=== PATIENT | male | born 1955 | race Caucasian/White ===

== ENCOUNTER 2019-08-06 09:46 | Inpatient (IN) | payer MEDICAID, SELFPAY ==
[2019-08-06 09:47] VITALS: BP 156/95; PULSE 102; RESP 25; TEMP 36.6; O2SAT 95; BMI 30.9
--- NOTE | 2019-08-06 09:58 | ECG_ITS ---
APPROVED REPORT Exam: Resting ECG HR:104 bpm ECG Measurements Heart Rate 104 AXES IA 188 P 52 QRSd 76 QRS 47 QT 318 T 76 QTc 418 <Conclusion> Sinus tachycardia Otherwise normal ECG Electronically signed by : Tereso Duarte, 08/08/2019 17:32:09
--- NOTE | 2019-08-06 10:08 | CT_ITS ---
PROCEDURE: CT ANGIO CHEST CLINCIAL INDICATION: SOA Shortness of air, left-sided chest pain COMPARISON: No exams were available for comparison TECHNIQUE: IV Contrast: 70ML OPTIRAY 350 Axial images obtained with sagittal and coronal reformats. All CT scans at the facility use one or more dose reduction, viz: automated exposure control, ma/kV adjustment per patient size (including targeted exams where dose is matched to indication, i.e. head), or iterative reconstruction technique. FINDINGS: HEART AND MEDIASTINAL STRUCTURES: No mediastinal or hilar mass evident. No evidence of aortic aneurysm or dissection. No evidence pulmonary embolus. There is diffuse coronary artery calcification LUNGS AND PLEURAL SPACES: Unremarkable. BONY STRUCTURES: Degenerative changes are present in the thoracic spine. UPPER ABDOMEN: There is diffuse fatty liver infiltration. There is thickening the lateral wall of the greater curvature of the stomach and there is thickening anterior pararenal fascia on left with some haziness of the pancreatic tail. These suspicious for acute pancreatitis. Recommend dedicated abdomen CT for evaluation. There is dense calcification involving the medial aspect of the left hepatic lobe ADDITIONAL FINDINGS: No other significant abnormalities. IMPRESSION: 1. No acute finding of the chest. No evidence of pulmonary embolus aortic aneurysm or dissection.. 2. Suspect acute pancreatitis of the tail the pancreas. Suggest dedicated CT abdomen for further evaluation. 3. Fatty liver Dictated by: Andrew Newman MD 08/06/2019 11:21 Electronically signed by Andrew Newman MD in [place] 08/06/2019 11:21
[2019-08-06 10:10] LABS: Basophils # 0.1 K/mm3 (0-0.2); Basophils % 0.9 % (0.1-2.0); Eosinophils # 0.1 K/mm3 (0.0-0.4); Eosinophils % 0.5 % (0.1-12.0); Hematocrit 49.9 % (42.0-52.0); Hemoglobin 16.6 g/dL (14.1-18.0); Lymphocytes # 0.6 K/mm3 (0.7-4.5); Lymphocytes % 4.6 % (10-50); Mean Corpuscular HGB Conc 33.3 g/dL (31.8-35.4); Mean Corpuscular Hemoglobin 33.8 pg (27.0-31.2); Mean Corpuscular Volume 101.5 fl (80-94); Mean Platelet Volume 9.1 fl (7.4-10.4); Monocytes # 0.6 K/mm3 (0.1-1.0); Monocytes % 4.7 % (1.7-9.3); Neutrophils # 11.9 K/mm3 (1.8-7.8); Neutrophils % 89.3 % (37.0-80.0); Platelet Count 249 K/mm3 (142-424); Red Blood Count 4.91 M/mm3 (4.60-6.20); Red Cell Distribution Width 13.6 % (11.5-17.5); White Blood Count 13.3 K/mm3 (4.8-10.8)
[2019-08-06 10:13] LABS: MANUAL DIFFERENTIAL MANUAL DIFFERENTIAL (MANUAL DIFF)
--- NOTE | 2019-08-06 10:15 | HMH.EDGENADL ---
ED Disposition Clinical Impression: Acute pancreatitis, Intractable abdominal pain, Sepsis Disposition: Admitted as Observation Condition on Discharge: Good - Critical Care Critical Care Time: Yes (When patient first came in he was little diaphoretic and pulse was elevated) Attestation: On 08/06/19, the high probability of a clinically significant, sudden or life threatening deterioration of the following system(s) required my full and direct attention, intervention and personal management. The time I documented below is in addition to time spent performing reported procedures but includes the following listed in this critical care notation. Total Critical Care Time: 10 Vital system(s) involved:: Circulatory Failure, Shock (Septic) My critical care processes included: Assessment & monitoring of V/S, Initial and Re-exams, Data Review/Interpretation, Coordinating Care, Medication Orders and management, Documentation Medical Decision Making - Medical Records Medical records reviewed: Yes: I reviewed the patient's medical records. - Faisal Inquiry Pt receiving controlled substance: No Vital Signs: 08/06/19 09:47 08/06/19 10:47 Temperature 97.8 F Temperature Source Oral Pulse Rate [Right] 102 H 92 H Respiratory Rate 25 H 20 Blood Pressure [Right Arm] 156/95 H 148/81 H Blood Pressure Mean [Right Arm] 115 103 Blood Pressure Source [Right Arm] Automatic Cuff Blood Pressure Position [Right Arm] Supine 02 Sat by Pulse Oximetry 95 95 - Lab Data Lab results reviewed: Yes: I reviewed the patient's lab results. Lab Results 08/06/19 09:53: WBC 13.3 H, RBC 4.91, Hgb 16.6, Hct 49.9, MCV 101.5 H, MCH 33.8 H, MCHC 33.3, RDW 13.6, Plt Count 249, MPV 9.1, Neut % (Auto) 89.3 H, Lymph % (Auto) 4.6 L, Benson % (Auto) 4.7, Eos % (Auto) 0.5, Baso % (Auto) 0.9, Neut # (Auto) 11.9 H, Lymph # (Auto) 0.6 L, Benson # (Auto) 0.6, Eos # (Auto) 0.1, Baso # (Auto) 0.1, Total Counted 100, Neutrophils % (Manual) 83 H, Lymphocytes % (Manual) 9 L, Monocytes % (Manual) 8, Platelet Estimate Normal, Anisocytosis 1+, Macrocytosis 1+ 08/06/19 09:53: Sodium 134 L, Potassium 4.7, Chloride 95 L, Carbon Dioxide 23, Anion Gap 20.7 H, BUN 20, Creatinine 1.40 H, Estimated Creat Clear 82, Estimated GFR 51 L, Est GFR ( Amer) 62, Glucose 344 H, Calcium 10.7 H, Total Bilirubin 1.3, AST 53, ALT 96 H, Alkaline Phosphatase 68, Troponin I < 0.01, Total Protein 8.6 H, Albumin 5.1 H, Globulin 3.5 H, Albumin/Globulin Ratio 1.5 08/06/19 09:53: Troponin I Cancelled, Amylase 332 H* 08/06/19 09:53: ESR 3 08/06/19 09:53: C-Reactive Protein 63.7 H 08/06/19 09:53: Lipase 3777 H 08/06/19 10:21: Specimen Source L brachial, O2 % Room air, ABG pH 7.34 L, ABG pCO2 42.6, ABG pO2 59.6 L, ABG HCO3 22.4, ABG Total CO2 23.7, ABG O2 Saturation 90, ABG Base Excess -3.4 L 08/06/19 10:22: Lactate 2.4 H 08/06/19 10:22: Influenza Type A Ag Negative, Influenza Type B Ag Negative 08/06/19 10:22: Group A Strep Rapid Negative 08/06/19 11:55: Urine Color Yellow, Urine Appearance Clear, Urine pH 5.5, Ur Specific [place] 1.010, Urine Protein Negative, Urine Glucose (UA) 3+, Urine Ketones Negative, Urine Blood Trace-i, Urine Nitrate Negative, Urine Bilirubin Negative, Urine Urobilinogen 0.2, Ur Leukocyte Esterase Negative, Urine RBC 3-5, Urine WBC 5-10, Ur Squamous Epith Cells Occasional, Ur Transition Epith Cell Occ, Urine Bacteria Trace Result diagrams: 08/06/19 09:53 08/06/19 09:53 Orders (Tests/Meds): ED MEDICATIONS Generic Name Dose Route Start Last Admin Trade Name Freq PRN Reason Stop Dose Admin Piperacillin Sod/Tazobactam 50 mls @ 100 mls/hr 08/06/19 13:00 08/06/19 12:30 Sod 3.375 gm/ Sodium Chloride IV 08/20/19 12:59 100 mls/hr Q6H RICKY Administration Protocol Discontinued Medications Generic Name Dose Route Start Last Admin Trade Name Freq PRN Reason Stop Dose Admin Ioversol 75 ml 08/06/19 10:55 08/06/19 10:55 Rad-Optiray 350 100ml Vial IV 08/06/19 10:56 7
[2019-08-06 10:19] LABS: Chloride 95 mmol/L (98-107); Potassium 4.7 mmoL/L (3.5-5.1); Sodium 134 mmol/L (136-145)
[2019-08-06 10:21] LABS: Anisocytosis 1+; Lymphocytes % 9 % (10-50); Macrocytosis 1+; Monocytes % 8 % (2-9); Neutrophils % 83 % (42-76); Platelet Estimate Normal; Total Cells Counted 100
[2019-08-06 10:22] LABS: Alanine Aminotransferase 96 U/L (12-78); Albumin Level 5.1 g/dl (3.5-5.0); Albumin/Globulin Ratio 1.5 (1.1-1.8); Alkaline Phosphatase 68 U/L (38-126); Anion Gap 20.7 mEq/L (5-15); Aspartate Amino Transferase 53 U/L (17-59); Bilirubin,Total 1.3 mg/dl (0.2-1.3); Blood Urea Nitrogen 20 mg/dl (9-20); Calcium 10.7 mg/dl (8.4-10.2); Carbon Dioxide 23 mmol/L (22.0-30.0); Creatinine Clearance Estimated 82 mL/min (50-200); Estimated Glomerular Filt Rate 51 ml/min (>60); GFR (African American) 62 ML/MIN (>60); Globulin 3.5 g/dL (1.3-3.2); Glucose 344 mg/dl (74-100); Total Protein,Serum 8.6 g/dl (6.3-8.2)
[2019-08-06 10:35] LABS: Troponin I < 0.01 ng/ml (0.00-0.034)
[2019-08-06 10:38] LABS: C-Reactive Protein 63.7 mg/L (0-4)
[2019-08-06 10:39] LABS: Strep Scrn Group A (Rapid) Negative (Negative)
[2019-08-06 10:42] LABS: Lactic Acid 2.4 mmol/L (0.7-2.1)
[2019-08-06 10:47] VITALS: BP 148/81; PULSE 92; RESP 20; O2SAT 95
[2019-08-06 10:48] LABS: Erythrocyte Sedimentation Rate 3 mm/hr (0-20)
[2019-08-06 10:55] LABS: ABG Base Excess -3.4 mmol/L (-2.4-2.3); ABG HCO3 22.4 mmhg (22.0-26.0); ABG Oxygen Saturation 90 % (90-100); ABG PCO2 42.6 mmhg (35.0-45.0); ABG PH 7.34 mmol/L (7.35-7.45); ABG PO2 59.6 mmhg (80-100); ABG TCO2 23.7 mmhg (23-27)
[2019-08-06 10:56] LABS: Oxygen ROOM AIR %; Source L BRACHIAL
--- NOTE | 2019-08-06 11:19 | PC.NURSE ---
NOTIFIED THAT PT MEETS CRITERIA FOR SEVERE SEPSIS
--- NOTE | 2019-08-06 11:55 | CT_ITS ---
PROCEDURE: CT ABDOMEN PELVIS WO CON CLINICAL INDICATION: Possible pancreatitis Left-sided abdominal pain, evaluate for pancreatitis COMPARISON: No exams were available for comparison TECHNIQUE: Axial images obtained with sagittal and coronal reformats. All CT scans at the facility use one or more dose reduction, viz: automated exposure control, ma/kV adjustment per patient size (including targeted exams where dose is matched to indication, i.e. head), or iterative reconstruction technique. FINDINGS: LOWER THORAX: No acute finding ABDOMEN & PELVIS: There is diffuse fatty liver with mild hepatomegaly.. A rounded coarse area of calcification is present involving the left lateral aspect of the left hepatic lobe at 2.5 cm There is thickening of the lateral wall of the greater curvature of the stomach as well as the anterior pararenal fascia extending from the diaphragmatic region. There is increased density lacked at the tail the pancreas with stranding of the peripancreatic fat consistent with pancreatitis. The spleen, adrenal glands, and kidneys have an unremarkable appearance. Contrast is present within the renal collecting system from recent chest CT. No obvious pancreatic abscess or pancreatic gas. No localized peripancreatic fluid collections are evident. There are some low level areas of increased density in the gallbladder and could be due to cholelithiasis or sludge. There is a mild amount of retained colonic feces. No intestinal obstruction or free air. Urinary bladder is distended with contrast. No acute bony findings. IMPRESSION: 1. The findings are compatible with acute pancreatitis of the tail the pancreas with inflammatory changes of the greater curvature of the stomach and thickening of the anterior pararenal fascia. No pancreatic abscess or localized fluid collections. 2. Fatty liver with hepatomegaly Dictated by: Andrew Newman MD 08/06/2019 13:32 Electronically signed by Andrew Newman MD in [place] 08/06/2019 13:32
[2019-08-06 12:01] LABS: Appearance,Urine CLEAR (Clear); Bilirubin,Urine Negative (Negative); Blood, Urine TRACE-I (Negative); Color,Urine YELLOW (Yellow); Glucose,Urine (UA) 3+ (Negative); Ketones,Urine Negative (Negative); Leukocyte Esterase,Urine Negative (Negative); Microscopic, Urine URINE MICROSCOPIC (MICROSCOPIC); Nitrate,Urine Negative (Negative); PH,Urine 5.5 (5.0-8.5); Protein,Urine Negative (Negative); Urobilinogen,Urine 0.2 EU/dl (0.2)
[2019-08-06 12:08] LABS: Amylase 332 U/L (30-110)
[2019-08-06 12:08] LABS: Bacteria,Urine Trace /lpf; Squamous Epithelial Cell,Urine Occasional #/hpf (0-5); Transitional Epi Cells,Urine OCC #/lpf (0-3)
[2019-08-06 12:16] LABS: Lipase 3777 U/L (23-300)
[2019-08-06 14:23] LABS: Reflex Lactic Add Lactic Reflex
[2019-08-06 14:52] LABS: Lactic Acid Follow Up (RFLX 1) 2.4 mmol/L (0.7-2.1)
--- NOTE | 2019-08-06 14:59 | P.CONPHA_ITS ---
[facility] Pharmacy VTE Monitoring - Patient Demographics Admission date: 08/06/19 Report Date: 08/06/19 Time: 14:59 Allergies/Adverse Reactions: Patient Allergies No Known Allergies Allergy (Verified 08/06/19 09:58) Height: 1.85 m Weight: 106.594 kg Patient Problems: Current Active Problems Acute pancreatitis (Acute) Intractable abdominal pain (Acute) Sepsis (Acute) - VTE Risk Labs: VTE Related Lab Results Hgb 16.6 g/dL (14.1-18.0) 08/06/19 09:53 Hct 49.9 % (42.0-52.0) 08/06/19 09:53 Plt Count 249 K/mm3 (142-424) 08/06/19 09:53 BUN 20 mg/dl (9-20) 08/06/19 09:53 Creatinine 1.40 mg/dl (0.66-1.25) H 08/06/19 09:53 Estimated Creat Clear 82 mL/min (50-200) 08/06/19 09:53 - Prophylaxis VTE Prophylaxis Ordered?: Yes Types of VTE Prophylaxis: TEDS Knee High Location of Applied Device: Bilateral Lower Extremeties - VTE Diagnosis Confirmed Treatment or plan recommended: Continue Current Treatment
[2019-08-06 15:05] VITALS: BP 150/80; PULSE 87; RESP 20; TEMP 36.8; O2SAT 98
[2019-08-06 15:51] VITALS: BP 120/80; PULSE 102; RESP 18; TEMP 37; O2SAT 94
--- NOTE | 2019-08-06 16:20 | HMH.HP ---
*Admission Date: 08/06/19 *Chief complaint: Left abdominal and chest pain *History of present illness: 64-year-old white male, with a history of diabetes, hypertension and hyperlipidemia who presented to the emergency department with a 2-day history of increasing left lower chest pain along with left upper abdominal pain. He reports some bloating sensations, and a gnawing/intractable pain that has worsened over the past 24 hours. In the emergency department work-up revealed clears chest CT scan, and abdominal CT that revealed evidence of inflammation of the tail of the pancreas without mass. Amylase and lipase were elevated, signs/symptoms of sepsis were noted and patient was admitted to hospital for IV fluids, pain control and antibiotics. Of note patient denies alcohol intake. Denies changes in stools, sonia colored stools, green stools or bloody stools. Patient reports that his physician that he sees for his diabetes recently started new medication and he thinks his new medications were diclofenac and Jardiance-patient notes that his A1c was 12% at his visit at his last appointment. Patient feels much better after pain medicine administered in the ER. [facility] History I have reviewed the patient's past medical history: Yes Medical History: Reports:: Diabetes Mellitus Type 2, Hyperlipidemia, Hypertension *Have you ever received a pneumonia vaccine?: No *Have you received a flu vaccine this season?: Yes - *Social History Educational Level: Attended Grade School Alcohol Intake: never *Occupational Status:: unemployed Household Members: family *Travel in the last 8 weeks: None Family Hx:: No significant family history Review of Systems - Review of Systems Review of systems:: pertinent systems reviewed and negative unless documented below Meds Home Medications Medication Instructions Recorded Confirmed Type Aspirin [Aspirin 81mg EC Tab] 81 mg PO DAILY 08/06/19 08/06/19 History Diclofenac Sodium [Diclofenac 75mg 75 mg PO BID 08/06/19 08/06/19 History Tab] Empagliflozin [Jardiance] 25 mg PO DAILY 08/06/19 08/06/19 History Ezetimibe 10 mg PO DAILY 08/06/19 08/06/19 History Fenofibrate 160 mg PO DAILY 08/06/19 08/06/19 History Levothyroxine Sodium [Synthroid 75 mcg PO DAILY 08/06/19 08/06/19 History 75mcg (0.075mg) tablet] Lisinopril/Hydrochlorothiazide 1 tab PO DAILY 08/06/19 08/06/19 History [Lisinopril-Hctz 20-25 mg Tab*] Metformin HCl 500 mg PO BID 08/06/19 08/06/19 History glipiZIDE [Glucotrol 5mg tablet] 5 mg PO BID 08/06/19 08/06/19 History Allergies Allergy/AdvReac Type Severity Reaction Status Date / Time No Known Allergies Allergy Verified 08/06/19 09:58 Exam Vital signs and Labs for Last 24 Hours: Temp Pulse Resp BP Pulse Ox 98.6 F 102 H 18 120/80 94 L 08/06/19 15:51 08/06/19 15:51 08/06/19 15:51 08/06/19 15:51 08/06/19 15:51 Laboratory Results - last 24 hr 08/06/19 09:53: WBC 13.3 H, RBC 4.91, Hgb 16.6, Hct 49.9, MCV 101.5 H, MCH 33.8 H, MCHC 33.3, RDW 13.6, Plt Count 249, MPV 9.1, Neut % (Auto) 89.3 H, Lymph % (Auto) 4.6 L, Levy % (Auto) 4.7, Eos % (Auto) 0.5, Baso % (Auto) 0.9, Neut # (Auto) 11.9 H, Lymph # (Auto) 0.6 L, Levy # (Auto) 0.6, Eos # (Auto) 0.1, Baso # (Auto) 0.1, Total Counted 100, Neutrophils % (Manual) 83 H, Lymphocytes % (Manual) 9 L, Monocytes % (Manual) 8, Platelet Estimate Normal, Anisocytosis 1+, Macrocytosis 1+ 08/06/19 09:53: Sodium 134 L, Potassium 4.7, Chloride 95 L, Carbon Dioxide 23, Anion Gap 20.7 H, BUN 20, Creatinine 1.40 H, Estimated Creat Clear 82, Estimated GFR 51 L, Est GFR ( Amer) 62, Glucose 344 H, Calcium 10.7 H, Total Bilirubin 1.3, AST 53, ALT 96 H, Alkaline Phosphatase 68, Troponin I < 0.01, Total Protein 8.6 H, Albumin 5.1 H, Globulin 3.5 H, Albumin/Globulin Ratio 1.5 08/06/19 09:53: Troponin I Cancelled, Amylase 332 H* 08/06/19 09:53: ESR 3 08/06/19 09:53: C-Reactive Protein 63.7 H 08/06/19 09:53: Lipase 3777 H 08/06/19 10:21: Spec
[2019-08-06 16:38] LABS: POC Glucose,Bedside 307 (70-110)
[2019-08-06 16:42] LABS: Reflex Lactic (2 hrs) Add Lactic Reflex
[2019-08-06 17:41] LABS: Lactic Acid Follow up (RFLX 2) 2.3 mmol/L (0.7-2.1)
[2019-08-06 20:00] VITALS: BP 132/73; PULSE 117; RESP 18; TEMP 36.8; O2SAT 97
[2019-08-06 20:43] LABS: POC Glucose,Bedside 259 (70-110)
--- NOTE | 2019-08-07 02:49 | PC.NURSE ---
A&O X4. PT RESTED INTERMITTENTLY T/O SHIFT. HE C/O PAIN OF THE LEFT ABDOMEN REGION T/O SHIFT, REQUESTING PAIN MEDS. ADMINISTERED DILAUDID X2 PER JUN THUS FAR. UPON REASSESSMENT BOTH TIMES PT NOTED RESTING WITH EYES CLOSED WITH NO FURTHER COMPLAINTS. PT DOES STATE TO THIS RN THAT WHEN MEDIATION IS GIVEN TO HIM ON AN EMPTY STOMACH HE GETS VERY NAUSEOUS. ADMINISTERED ZOFRAN PER JUN X1 THUS FAR. PT TOLERATED WELL WITH NO EMESIS POST DEPARTMENT OF [employer] OFFICER. PT DID VOMIT X1 THUS FAR THIS SHIFT. THICK GREEN EMESIS NOTED. PT REFUSED A BATH WHEN THIS RN ASKED AFTER VOMITING. PT REMAINS ON NPO WITH ICE CHIPS ONLY. TOLERATES ICE CHIPS WELL. USE OF URINAL T/O SHIFT. URINE NOTED WITH STRONG FOUL ODOR, CLEAR, STRAW COLOR. VSS. TEDS BLE. REMAINS SAFE. CALL LIGHT WITHIN REACH. WILL CONTINUE TO MONITOR.
[2019-08-07 04:00] VITALS: BP 122/76; PULSE 112; RESP 20; TEMP 36.8; O2SAT 90
[2019-08-07 05:50] VITALS: BMI 31.6
[2019-08-07 06:31] LABS: POC Glucose,Bedside 346 (70-110)
[2019-08-07 07:22] LABS: Chloride 99 mmol/L (98-107); Potassium 5.1 mmoL/L (3.5-5.1); Sodium 138 mmol/L (136-145)
[2019-08-07 07:25] LABS: Alanine Aminotransferase 57 U/L (12-78); Albumin Level 4.1 g/dl (3.5-5.0); Albumin/Globulin Ratio 1.5 (1.1-1.8); Alkaline Phosphatase 48 U/L (38-126); Anion Gap 23.1 mEq/L (5-15); Aspartate Amino Transferase 42 U/L (17-59); Bilirubin,Total 1.4 mg/dl (0.2-1.3); Blood Urea Nitrogen 27 mg/dl (9-20); Carbon Dioxide 21 mmol/L (22.0-30.0); Creatinine Clearance Estimated 65 mL/min (50-200); Estimated Glomerular Filt Rate 38 ml/min (>60); GFR (African American) 46 ML/MIN (>60); Globulin 2.7 g/dL (1.3-3.2); Glucose 296 mg/dl (74-100); Total Protein,Serum 6.8 g/dl (6.3-8.2)
[2019-08-07 07:27] LABS: Basophils # 0.2 K/mm3 (0-0.2); Basophils % 0.9 % (0.1-2.0); Eosinophils % 0.1 % (0.1-12.0); Hemoglobin 16.1 g/dL (14.1-18.0); Lymphocytes # 0.4 K/mm3 (0.7-4.5); Lymphocytes % 2.2 % (10-50); Mean Corpuscular HGB Conc 31.6 g/dL (31.8-35.4); Mean Corpuscular Hemoglobin 33.8 pg (27.0-31.2); Mean Platelet Volume 8.9 fl (7.4-10.4); Monocytes # 0.8 K/mm3 (0.1-1.0); Monocytes % 4.4 % (1.7-9.3); Neutrophils # 16.8 K/mm3 (1.8-7.8); Neutrophils % 92.4 % (37.0-80.0); Platelet Count 221 K/mm3 (142-424); Red Blood Count 4.77 M/mm3 (4.60-6.20); Red Cell Distribution Width 14.1 % (11.5-17.5); White Blood Count 18.2 K/mm3 (4.8-10.8)
[2019-08-07 07:28] LABS: MANUAL DIFFERENTIAL MANUAL DIFFERENTIAL (MANUAL DIFF)
[2019-08-07 07:33] LABS: Amylase 1428 U/L (30-110)
[2019-08-07 07:40] VITALS: BP 139/77; PULSE 106; RESP 17; TEMP 36.4; O2SAT 94
[2019-08-07 07:41] LABS: Anisocytosis 2+; Lymphocytes % 5 % (10-50); Macrocytosis 2+; Monocytes % 9 % (2-9); Neutrophils % 86 % (42-76); Platelet Estimate Normal; Total Cells Counted 100
[2019-08-07 08:00] VITALS: O2SAT 94
[2019-08-07 08:20] LABS: Lipase 11819 U/L (23-300)
--- NOTE | 2019-08-07 08:52 | HMH.ACPN2 ---
Internal Medicine - PN: Subj *Date: 08/07/19 *Time: 08:52 Interval history: Overall patient feels weird which she attributes to not eating today. His abdominal pain is about the same. He has been able to make urine and have 1 bowel movement. Denies vomiting. Exam Vital signs and Labs for Last 24 Hours: Temp Pulse Resp BP Pulse Ox 97.6 F 106 H 17 139/77 94 L 08/07/19 07:40 08/07/19 07:40 08/07/19 07:40 08/07/19 07:40 08/07/19 07:40 Laboratory Results - last 24 hr 08/06/19 09:53: WBC 13.3 H, RBC 4.91, Hgb 16.6, Hct 49.9, MCV 101.5 H, MCH 33.8 H, MCHC 33.3, RDW 13.6, Plt Count 249, MPV 9.1, Neut % (Auto) 89.3 H, Lymph % (Auto) 4.6 L, [place] % (Auto) 4.7, Eos % (Auto) 0.5, Baso % (Auto) 0.9, Neut # (Auto) 11.9 H, Lymph # (Auto) 0.6 L, [place] # (Auto) 0.6, Eos # (Auto) 0.1, Baso # (Auto) 0.1, Total Counted 100, Neutrophils % (Manual) 83 H, Lymphocytes % (Manual) 9 L, Monocytes % (Manual) 8, Platelet Estimate Normal, Anisocytosis 1+, Macrocytosis 1+ 08/06/19 09:53: Sodium 134 L, Potassium 4.7, Chloride 95 L, Carbon Dioxide 23, Anion Gap 20.7 H, BUN 20, Creatinine 1.40 H, Estimated Creat Clear 82, Estimated GFR 51 L, Est GFR ( Amer) 62, Glucose 344 H, Calcium 10.7 H, Total Bilirubin 1.3, AST 53, ALT 96 H, Alkaline Phosphatase 68, Troponin I < 0.01, Total Protein 8.6 H, Albumin 5.1 H, Globulin 3.5 H, Albumin/Globulin Ratio 1.5 08/06/19 09:53: Troponin I Cancelled, Amylase 332 H* 08/06/19 09:53: ESR 3 08/06/19 09:53: C-Reactive Protein 63.7 H 08/06/19 09:53: Lipase 3777 H 08/06/19 10:21: Specimen Source L brachial, O2 % Room air, ABG pH 7.34 L, ABG pCO2 42.6, ABG pO2 59.6 L, ABG HCO3 22.4, ABG Total CO2 23.7, ABG O2 Saturation 90, ABG Base Excess -3.4 L 08/06/19 10:22: Lactate 2.4 H 08/06/19 10:22: Influenza Type A Ag Negative, Influenza Type B Ag Negative 08/06/19 10:22: Group A Strep Rapid Negative 08/06/19 11:55: Urine Color Yellow, Urine Appearance Clear, Urine pH 5.5, Ur Specific [place] 1.010, Urine Protein Negative, Urine Glucose (UA) 3+, Urine Ketones Negative, Urine Blood Trace-i, Urine Nitrate Negative, Urine Bilirubin Negative, Urine Urobilinogen 0.2, Ur Leukocyte Esterase Negative, Urine RBC 3-5, Urine WBC 5-10, Ur Squamous Epith Cells Occasional, Ur Transition Epith Cell Occ, Urine Bacteria Trace 08/06/19 14:35: Lactate 2.4 H 08/06/19 16:21: POC Glucose 307 H* 08/06/19 17:17: Lactate 2.3 H 08/06/19 20:32: POC Glucose 259 H 08/07/19 06:00: POC Glucose 346 H* 08/07/19 06:16: Amylase 1428 H* 08/07/19 06:16: WBC 18.2 H D, RBC 4.77, Hgb 16.1, Hct 51.0, MCV 107.0 H, MCH 33.8 H, MCHC 31.6 L, RDW 14.1, Plt Count 221, MPV 8.9, Neut % (Auto) 92.4 H, Lymph % (Auto) 2.2 L, [place] % (Auto) 4.4, Eos % (Auto) 0.1, Baso % (Auto) 0.9, Neut # (Auto) 16.8 H, Lymph # (Auto) 0.4 L, Harper # (Auto) 0.8, Eos # (Auto) 0.0, Baso # (Auto) 0.2, Total Counted 100, Neutrophils % (Manual) 86 H, Lymphocytes % (Manual) 5 L, Monocytes % (Manual) 9, Platelet Estimate Normal, Anisocytosis 2+, Macrocytosis 2+ 08/07/19 06:16: Sodium 138, Potassium 5.1, Chloride 99, Carbon Dioxide 21 L, Anion Gap 23.1 H, BUN 27 H D, Creatinine 1.80 H D, Estimated Creat Clear 65, Estimated GFR 38 L, Est GFR ( Amer) 46 L D, Glucose 296 H, Calcium 9.0 D, Total Bilirubin 1.4 H, AST 42, ALT 57 D, Alkaline Phosphatase 48, Total Protein 6.8, Albumin 4.1 D, Globulin 2.7, Albumin/Globulin Ratio 1.5, Lipase 25322 H I & O for Last 24 hours: Intake & Output 08/04/19 08/05/19 08/06/19 08/07/19 11:59 11:59 11:59 11:59 Intake Total 2824 / 2824 Output Total 1465 / 1465 Balance 1359 / 1359 Weight 235 lb 239 lb 2 oz - *Routine HEENT Exam Head: Present: normocephalic Eye: Present: EOMI, PERRL ENT: Present: mucous membranes moist - *Routine Neck Exam Present: supple. Absent: lymphadenopathy - *Routine Respiratory Exam Present: CTA bilaterally - *Routine Cardiovascular Exam Present: RRR - *Routine Abdominal Exam Present: soft, normoactive bowel sounds, t
[2019-08-07 11:03] LABS: POC Glucose,Bedside 368 (70-110)
--- NOTE | 2019-08-07 11:17 | HMH.PHAINT ---
MED REC-COMPARED MED LIST WITH FILL HX. CORRECTIONS MADE.
--- NOTE | 2019-08-07 12:09 | PC.NURSE ---
Pt did not tolerate a clear diet;He had several episodes of vomiting and reported increased abdominal pain. Pt made NPO (ice chips only) and zofran administered, he refused pain meds;
[2019-08-07 16:00] VITALS: BP 118/88; PULSE 60; RESP 17; TEMP 36.6; O2SAT 94
[2019-08-07 16:23] LABS: POC Glucose,Bedside 311 (70-110)
--- NOTE | 2019-08-07 17:28 | PC.NURSE ---
Pt has rested in bed all shift. Diet was switched to clears for breakfast but patient did not tolerate, he had an episode of vomiting and complained of increased abdominal pain. Diet switched back to npo (ice chips) zofran and morphine administered. Pt reported relief from both but still reported feeling bloated. He has used a urinal at the bedside, urine is dark and foul smelling. Glucose has been elevated in the 300's, 10u and 8u units administered per sliding scale. No other complaints verbalized. Will continue to monitor.
[2019-08-07 20:00] VITALS: BP 142/80; PULSE 131; RESP 20; TEMP 36.6; O2SAT 91
[2019-08-07 21:25] LABS: POC Glucose,Bedside 284 (70-110)
[2019-08-07 22:43] VITALS: PULSE 124
--- NOTE | 2019-08-07 23:54 | PC.NURSE ---
EKG obtained and read per ER MD due to pt remaining tachycardic. See chart. Pt denies any soa or discomfort to chest. EKG on chart. Pt currently resting in bed. No N/V at this time. Pt c/o burning to stomach earlier this evening and was administered medication per jun. Pt stated that his stomach felt as if it was on fire. No additional complaints. He is currently sleeping at this time. Call light within reach. Will continue to monitor.
[2019-08-08 04:00] VITALS: BP 121/71; PULSE 117; RESP 16; TEMP 36.7; O2SAT 90
--- NOTE | 2019-08-08 04:27 | PC.NURSE ---
Spoke with MD during rounding this AM. Give additional 1L bolus of LR then return to 150 ml/hr.no change to D5 NS @ 50 ml/hr.
--- NOTE | 2019-08-08 04:34 | HMH.ACPN2 ---
Internal Medicine - PN: Subj *Date: 08/08/19 *Time: 04:34 Interval history: Patient overnight had ongoing stomach burning, was able to keep liquids down, and has had 700 mL's of urine out so for the shift. He has had increasing tachycardia, EKG at midnight showed sinus tachycardia. Also complains of difficulty breathing. Exam Vital signs and Labs for Last 24 Hours: Temp Pulse Resp BP Pulse Ox 97.9 F 124 H 20 142/80 H 91 L 08/07/19 20:00 08/07/19 22:43 08/07/19 20:00 08/07/19 20:00 08/07/19 20:00 Laboratory Results - last 24 hr 08/07/19 06:00: POC Glucose 346 H* 08/07/19 06:16: Amylase 1428 H* 08/07/19 06:16: WBC 18.2 H D, RBC 4.77, Hgb 16.1, Hct 51.0, MCV 107.0 H, MCH 33.8 H, MCHC 31.6 L, RDW 14.1, Plt Count 221, MPV 8.9, Neut % (Auto) 92.4 H, Lymph % (Auto) 2.2 L, [place] % (Auto) 4.4, Eos % (Auto) 0.1, Baso % (Auto) 0.9, Neut # (Auto) 16.8 H, Lymph # (Auto) 0.4 L, [place] # (Auto) 0.8, Eos # (Auto) 0.0, Baso # (Auto) 0.2, Total Counted 100, Neutrophils % (Manual) 86 H, Lymphocytes % (Manual) 5 L, Monocytes % (Manual) 9, Platelet Estimate Normal, Anisocytosis 2+, Macrocytosis 2+ 08/07/19 06:16: Sodium 138, Potassium 5.1, Chloride 99, Carbon Dioxide 21 L, Anion Gap 23.1 H, BUN 27 H D, Creatinine 1.80 H D, Estimated Creat Clear 65, Estimated GFR 38 L, Est GFR ( Amer) 46 L D, Glucose 296 H, Calcium 9.0 D, Total Bilirubin 1.4 H, AST 42, ALT 57 D, Alkaline Phosphatase 48, Total Protein 6.8, Albumin 4.1 D, Globulin 2.7, Albumin/Globulin Ratio 1.5, Lipase 13801 H 08/07/19 10:56: POC Glucose 368 H* 08/07/19 16:15: POC Glucose 311 H* 08/07/19 20:32: POC Glucose 284 H I & O for Last 24 hours: Intake & Output 08/05/19 08/06/19 08/07/19 08/08/19 11:59 11:59 11:59 11:59 Intake Total 2824 / 2824 5472 / 5472 Output Total 2215 / 2215 1650 / 1650 Balance 609 / 609 3822 / 3822 Weight 235 lb 239 lb 2 oz Narrative: Patient is awake, alert, pleasant. Lungs have good air movement. Heart rate tachycardic but regular. Abdomen is soft but has intense pain in the left upper quadrant into the flank consistent with his diagnosis of pancreatitis, no jaundice, no rashes on the abdomen. No periumbilical or flank bruising. No edema or clubbing. Neurologic exam nonfocal. Assessment and Plan (1) Acute pancreatitis Current visit: Yes Status: Acute Category: Medical Code(s): K85.90 - Acute pancreatitis without necrosis or infection, unspecified (2) Sepsis Current visit: Yes Status: Acute Category: Medical Code(s): A41.9 - Sepsis, unspecified organism (3) Obesity (BMI 30.0-34.9) Current visit: Yes Status: Acute Category: Medical Code(s): E66.9 - Obesity, unspecified (4) Diabetes mellitus type 2, noninsulin dependent Current visit: Yes Status: Acute Category: Medical Code(s): E11.9 - Type 2 diabetes mellitus without complications (5) Hyperlipidemia Current visit: Yes Status: Acute Category: Medical Code(s): E78.5 - Hyperlipidemia, unspecified (6) Hypertension Current visit: Yes Status: Acute Category: Medical Code(s): I10 - Essential (primary) hypertension (7) Acute kidney injury superimposed on chronic kidney disease Current visit: Yes Status: Acute Category: Medical Code(s): N17.9 - Acute kidney failure, unspecified; N18.9 - Chronic kidney disease, unspecified - Assessment and plan all Dx Assessment and Plan for all problems:: Laboratory studies yesterday showed acute kidney injury superimposed on chronic kidney disease. Plan will be to check his labs earlier this morning. We had fluids yesterday to support his sepsis, significant pancreatitis and kidney injury. Obviously this could be the natural sequela of this, check ABG to assess respiratory status/acidosis. Follow liver enzymes and blood counts today as well. Add Pepcid and Protonix for stomach pain.
[2019-08-08 04:53] LABS: ABG Base Excess -6.9 mmol/L (-2.4-2.3); ABG HCO3 18.9 mmhg (22.0-26.0); ABG Oxygen Saturation 92 % (90-100); ABG PCO2 36.5 mmhg (35.0-45.0); ABG PH 7.33 mmol/L (7.35-7.45); ABG PO2 64.7 mmhg (80-100); ABG TCO2 20.1 mmhg (23-27)
[2019-08-08 04:54] LABS: Allen's Test ACCEPTABLE; Oxygen 2L %; Source Right Radial
[2019-08-08 04:59] LABS: Basophils # 0.2 K/mm3 (0-0.2); Basophils % 0.9 % (0.1-2.0); Eosinophils # 0.1 K/mm3 (0.0-0.4); Eosinophils % 0.5 % (0.1-12.0); Hematocrit 45.2 % (42.0-52.0); Hemoglobin 14.5 g/dL (14.1-18.0); Lymphocytes # 0.4 K/mm3 (0.7-4.5); Lymphocytes % 2.6 % (10-50); Mean Corpuscular HGB Conc 32.1 g/dL (31.8-35.4); Mean Corpuscular Hemoglobin 33.4 pg (27.0-31.2); Mean Corpuscular Volume 104.1 fl (80-94); Mean Platelet Volume 9.5 fl (7.4-10.4); Monocytes % 5.8 % (1.7-9.3); Neutrophils % 90.1 % (37.0-80.0); Platelet Count 203 K/mm3 (142-424); Red Blood Count 4.34 M/mm3 (4.60-6.20); Red Cell Distribution Width 14.1 % (11.5-17.5); White Blood Count 16.7 K/mm3 (4.8-10.8)
[2019-08-08 05:00] VITALS: BMI 32.9
[2019-08-08 05:00] LABS: MANUAL DIFFERENTIAL MANUAL DIFFERENTIAL (MANUAL DIFF)
[2019-08-08 05:02] LABS: Alanine Aminotransferase 46 U/L (12-78); Albumin Level 3.3 g/dl (3.5-5.0); Albumin/Globulin Ratio 1.2 (1.1-1.8); Alkaline Phosphatase 49 U/L (38-126); Anion Gap 15.1 mEq/L (5-15); Aspartate Amino Transferase 67 U/L (17-59); Bilirubin,Total 2.2 mg/dl (0.2-1.3); Blood Urea Nitrogen 31 mg/dl (9-20); Carbon Dioxide 22 mmol/L (22.0-30.0); Chloride 102 mmol/L (98-107); Creatinine Clearance Estimated 73 mL/min (50-200); Estimated Glomerular Filt Rate 44 ml/min (>60); GFR (African American) 53 ML/MIN (>60); Globulin 2.8 g/dL (1.3-3.2); Glucose 254 mg/dl (74-100); Potassium 4.1 mmoL/L (3.5-5.1); Sodium 135 mmol/L (136-145); Total Protein,Serum 6.1 g/dl (6.3-8.2)
[2019-08-08 05:18] LABS: Lymphocytes % 4 % (10-50); Macrocytosis 3+; Monocytes % 2 % (2-9); Neutrophils % 77 % (42-76); Platelet Estimate Normal; Total Cells Counted 100
--- NOTE | 2019-08-08 05:19 | PC.NURSE ---
rn notified of weight gain
[2019-08-08 06:16] LABS: POC Glucose,Bedside 239 (70-110)
--- NOTE | 2019-08-08 07:06 | PC.NURSE ---
MD notified of pt VS and complaints this AM. Pt O2 sat in upper 80s. Pt stated, it hurts here when I breathe . Pt pointed to epigastric area. 2L NC applied. MD aware. Labs obtained and reported to . New order: Calcium Gluconate 2 grams IV and currently infusing at this time.
[2019-08-08 08:00] VITALS: BP 130/76; PULSE 113; RESP 18; TEMP 36.6; O2SAT 91
[2019-08-08 11:26] LABS: POC Glucose,Bedside 315 (70-110)
[2019-08-08 16:00] VITALS: BP 142/83; PULSE 92; RESP 20; TEMP 36.3; O2SAT 92
[2019-08-08 16:28] LABS: POC Glucose,Bedside 258 (70-110)
[2019-08-08 17:25] VITALS: O2SAT 88
--- NOTE | 2019-08-08 17:25 | PC.NURSE ---
RA sat 88%
--- NOTE | 2019-08-08 18:17 | PC.NURSE ---
Pt has complained of nausea t/o the shift and reports that his stomach hatch. He states even eating ice makes it burn worse. Zofran administered x2 and dilaudid administered x2 with some relief reported. He remains npo/ice chips only, pt has been educated on adhering to this as he has requested something to drink multiple times t/o the day. Small bm this morning. 1400 mll of urine out thus far. Will continue to monitor.
[2019-08-08 19:41] VITALS: BP 148/84; PULSE 113; RESP 21; TEMP 36.7; O2SAT 93
[2019-08-08 20:48] LABS: POC Glucose,Bedside 273 (70-110)
[2019-08-09] VITALS (7 sets, daily range): BP systolic 118–151; BP diastolic 68–83; PULSE 91–108; RESP 18–24; TEMP 36.6–36.8; O2SAT 90–95; BMI 34.0; BMI 34.2
--- NOTE | 2019-08-09 03:10 | PC.NURSE ---
Pt A&O x3. Has been up to chair x1 this shift. Tolerated fair. He continues to c/o abdominal discomfort and nausea. Describes discomfort as burning and cramping. Medicated per jun. Abdomen tender and distended. BS active. Pt remains on 2L NC. Has c/o soa x1 this shift. Dry cough noted. Pt has been encouraged to use incentive spirometer. HR tachycardic this shift ranging 110s. D5 NS @ 50 and LR infusing 150 ml/hr. Call light within reach. No other concerns at this time. Will continue to monitor.
[2019-08-09 06:13] LABS: Basophils # 0.1 K/mm3 (0-0.2); Basophils % 0.6 % (0.1-2.0); Eosinophils # 0.1 K/mm3 (0.0-0.4); Eosinophils % 0.4 % (0.1-12.0); Hematocrit 40.3 % (42.0-52.0); Hemoglobin 12.8 g/dL (14.1-18.0); Lymphocytes # 0.4 K/mm3 (0.7-4.5); Lymphocytes % 3.5 % (10-50); Mean Corpuscular HGB Conc 31.8 g/dL (31.8-35.4); Mean Corpuscular Hemoglobin 33.2 pg (27.0-31.2); Mean Corpuscular Volume 104.6 fl (80-94); Mean Platelet Volume 9.6 fl (7.4-10.4); Monocytes # 0.8 K/mm3 (0.1-1.0); Monocytes % 7.1 % (1.7-9.3); Neutrophils # 10.4 K/mm3 (1.8-7.8); Neutrophils % 88.3 % (37.0-80.0); Platelet Count 170 K/mm3 (142-424); Red Blood Count 3.85 M/mm3 (4.60-6.20); Red Cell Distribution Width 14.1 % (11.5-17.5); White Blood Count 11.8 K/mm3 (4.8-10.8)
[2019-08-09 06:16] LABS: MANUAL DIFFERENTIAL MANUAL DIFFERENTIAL (MANUAL DIFF)
[2019-08-09 06:19] LABS: Chloride 101 mmol/L (98-107); Potassium 3.9 mmoL/L (3.5-5.1); Sodium 137 mmol/L (136-145)
[2019-08-09 06:22] LABS: Alanine Aminotransferase 34 U/L (12-78); Albumin Level 3.3 g/dl (3.5-5.0); Albumin/Globulin Ratio 1.2 (1.1-1.8); Alkaline Phosphatase 59 U/L (38-126); Anion Gap 16.9 mEq/L (5-15); Aspartate Amino Transferase 51 U/L (17-59); Bilirubin,Total 1.3 mg/dl (0.2-1.3); Blood Urea Nitrogen 29 mg/dl (9-20); Calcium 7.1 mg/dl (8.4-10.2); Carbon Dioxide 23 mmol/L (22.0-30.0); Creatinine Clearance Estimated 97 mL/min (50-200); Estimated Glomerular Filt Rate 56 ml/min (>60); GFR (African American) 68 ML/MIN (>60); Globulin 2.8 g/dL (1.3-3.2); Glucose 161 mg/dl (74-100); Total Protein,Serum 6.1 g/dl (6.3-8.2)
[2019-08-09 06:34] LABS: POC Glucose,Bedside 143 (70-110)
--- NOTE | 2019-08-09 07:28 | US_ITS ---
PROCEDURE: US ABDOMEN COMPLETE CLINICAL INDICATION: pancreatitis COMPARISON: CT ABDOMEN PELVIS WO CON from 08/06/2019 FINDINGS: PANCREAS: The pancreas is not well visualized. LIVER: There is diffuse fatty liver infiltration with diffuse increased echogenicity of the liver with poor through transmission of sound. There is a 2 cm calcific lesion involving the lateral aspect of the left hepatic lobe as seen on the CT scan. RIGHT KIDNEY: Unremarkable. Normal size and echogenicity. No hydronephrosis LEFT KIDNEY: Unremarkable. Normal size and echogenicity. No hydronephrosis GALLBLADDER: No gallstones, gallbladder wall thickening, pericholecystic fluid, or biliary dilatation. The gallbladder is slightly prominent at 11 x 4 cm. AORTA: No evidence of aneurysmal dilatation. SPLEEN: Unremarkable. Normal size and echogenicity ASCITES: None demonstrated. IMPRESSION: Fatty liver with mild prominence of the gallbladder. No gallstones, gallbladder wall thickening or biliary dilatation evident. Dictated by: Andrew Newman MD 08/09/2019 14:36 Electronically signed by Andrew Newman MD in [place] 08/09/2019 14:36
--- NOTE | 2019-08-09 07:29 | XR_ITS ---
PROCEDURE: XR CHEST 2V CLINICAL HISTORY: dyspnea - ongoing pancreatitis The COMPARISON: CT ANGIO CHEST from 08/06/2019 FINDINGS: Mild cardiomegaly without failure. Increased density is developed in the left lower lobe consistent with pneumonia and/or volume loss with effusion. There are minimal atelectatic changes in the right lung base. No acute bony abnormalities. IMPRESSION: Left basilar atelectasis or infiltrate with effusion which has developed since CT scan of 08/06/2019 Dictated by: Andrew Newman MD 08/09/2019 13:39 Electronically signed by Andrew Newman MD in [facility] 08/09/2019 13:39
[2019-08-09 08:20] LABS: Anisocytosis 1+; Eosinophils % 1 % (0-3); Lymphocytes % 4 % (10-50); Macrocytosis 1+; Monocytes % 9 % (2-9); Neutrophils % 86 % (42-76); Total Cells Counted 100
[2019-08-09 08:21] LABS: Platelet Estimate Moderate Decrease
--- NOTE | 2019-08-09 08:29 | HMH.ACPN2 ---
Internal Medicine - PN: Subj *Date: 08/09/19 *Time: 08:29 Interval history: Patient feels somewhat better. Remains very hungry. His pain is better as is dyspnea. Exam Vital signs and Labs for Last 24 Hours: Temp Pulse Resp BP Pulse Ox 98.2 F 108 H 24 139/68 94 L 08/09/19 04:00 08/09/19 04:00 08/09/19 04:00 08/09/19 04:00 08/09/19 04:00 Laboratory Results - last 24 hr 08/08/19 11:08: POC Glucose 315 H* 08/08/19 16:21: POC Glucose 258 H 08/08/19 20:19: POC Glucose 273 H 08/09/19 05:35: WBC 11.8 H D, RBC 3.85 L, Hgb 12.8 L, Hct 40.3 L, MCV 104.6 H, MCH 33.2 H, MCHC 31.8, RDW 14.1, Plt Count 170, MPV 9.6, Neut % (Auto) 88.3 H, Lymph % (Auto) 3.5 L, [place] % (Auto) 7.1, Eos % (Auto) 0.4, Baso % (Auto) 0.6, Neut # (Auto) 10.4 H, Lymph # (Auto) 0.4 L, [place] # (Auto) 0.8, Eos # (Auto) 0.1, Baso # (Auto) 0.1, Total Counted 100, Neutrophils % (Manual) 86 H, Lymphocytes % (Manual) 4 L, Monocytes % (Manual) 9, Eosinophils % (Manual) 1, Platelet Estimate Moderate decrease, Anisocytosis 1+, Macrocytosis 1+ 08/09/19 05:35: Sodium 137, Potassium 3.9, Chloride 101, Carbon Dioxide 23, Anion Gap 16.9 H, BUN 29 H, Creatinine 1.30 H, Estimated Creat Clear 97, Estimated GFR 56 L, Est GFR ( Amer) 68 D, Glucose 161 H, Calcium 7.1 L, Total Bilirubin 1.3, AST 51, ALT 34 D, Alkaline Phosphatase 59, Total Protein 6.1 L, Albumin 3.3 L, Globulin 2.8, Albumin/Globulin Ratio 1.2 08/09/19 06:08: POC Glucose 143 H I & O for Last 24 hours: Intake & Output 04/24/20 04/25/20 04/26/20 04/27/20 11:59 11:59 11:59 11:59 Intake Total 2824 / 2824 5952 / 5952 5360 / 5360 Output Total 2215 / 2215 1650 / 1650 2275 / 2275 Balance 609 / 609 4302 / 4302 3085 / 3085 Weight 235 lb 239 lb 2 oz 248 lb 7 oz 257 lb Microbiology Reports for the Last 24 Hours: Microbiology 08/06/19 10:08 Blood Blood Culture - Preliminary NO GROWTH AFTER 48 HOURS 08/06/19 10:08 Blood Blood Culture - Preliminary NO GROWTH AFTER 48 HOURS 08/06/19 10:22 Throat Group A Streptococcus Screen (NEO) - Final Negative for Group A Streptococcus. Narrative: No scleral icterus or jaundice, alert, oriented, comfortable on oxygen with no dyspnea. Lungs are clear. Heart rate regular. Abdomen soft, tender in the left upper quadrant and flank but is better than yesterday. No edema or clubbing. Neurologically intact. Patient is globally weak. Assessment and Plan (1) Acute pancreatitis Current visit: Yes Status: Acute Category: Medical Code(s): K85.90 - Acute pancreatitis without necrosis or infection, unspecified (2) Sepsis Current visit: Yes Status: Acute Category: Medical Code(s): A41.9 - Sepsis, unspecified organism (3) Obesity (BMI 30.0-34.9) Current visit: Yes Status: Acute Category: Medical Code(s): E66.9 - Obesity, unspecified (4) Diabetes mellitus type 2, noninsulin dependent Current visit: Yes Status: Acute Category: Medical Code(s): E11.9 - Type 2 diabetes mellitus without complications (5) Hyperlipidemia Current visit: Yes Status: Acute Category: Medical Code(s): E78.5 - Hyperlipidemia, unspecified (6) Hypertension Current visit: Yes Status: Acute Category: Medical Code(s): I10 - Essential (primary) hypertension (7) Acute kidney injury superimposed on chronic kidney disease Current visit: Yes Status: Acute Category: Medical Code(s): N17.9 - Acute kidney failure, unspecified; N18.9 - Chronic kidney disease, unspecified - Assessment and plan all Dx Assessment and Plan for all problems:: Kidney injury improving, leukocytosis improving, continue current therapy and fluids. Physical/occupational therapy evaluation for his weakness. Check ultrasound and chest x-ray today. Replace hypocalcemia. Cautiously start full liquid diet.
--- NOTE | 2019-08-09 09:05 | HMH.ACPN ---
Internal Medicine - PN: Subj *Date: 08/09/19 *Time: 09:05 Exam Vital signs and Labs for Last 24 Hours: Temp Pulse Resp BP Pulse Ox 98.2 F 100 H 24 151/83 H 93 L 08/09/19 08:00 08/09/19 08:00 08/09/19 08:00 08/09/19 08:00 08/09/19 08:00 Laboratory Results - last 24 hr 08/08/19 11:08: POC Glucose 315 H* 08/08/19 16:21: POC Glucose 258 H 08/08/19 20:19: POC Glucose 273 H 08/09/19 05:35: WBC 11.8 H D, RBC 3.85 L, Hgb 12.8 L, Hct 40.3 L, MCV 104.6 H, MCH 33.2 H, MCHC 31.8, RDW 14.1, Plt Count 170, MPV 9.6, Neut % (Auto) 88.3 H, Lymph % (Auto) 3.5 L, [place] % (Auto) 7.1, Eos % (Auto) 0.4, Baso % (Auto) 0.6, Neut # (Auto) 10.4 H, Lymph # (Auto) 0.4 L, [place] # (Auto) 0.8, Eos # (Auto) 0.1, Baso # (Auto) 0.1, Total Counted 100, Neutrophils % (Manual) 86 H, Lymphocytes % (Manual) 4 L, Monocytes % (Manual) 9, Eosinophils % (Manual) 1, Platelet Estimate Moderate decrease, Anisocytosis 1+, Macrocytosis 1+ 08/09/19 05:35: Sodium 137, Potassium 3.9, Chloride 101, Carbon Dioxide 23, Anion Gap 16.9 H, BUN 29 H, Creatinine 1.30 H, Estimated Creat Clear 97, Estimated GFR 56 L, Est GFR ( Amer) 68 D, Glucose 161 H, Calcium 7.1 L, Total Bilirubin 1.3, AST 51, ALT 34 D, Alkaline Phosphatase 59, Total Protein 6.1 L, Albumin 3.3 L, Globulin 2.8, Albumin/Globulin Ratio 1.2 08/09/19 06:08: POC Glucose 143 H I & O for Last 24 hours: Intake & Output 08/06/19 08/07/19 08/08/19 08/09/19 23:59 23:59 23:59 23:59 Intake Total 1144 / 1144 4973 / 4973 5704 / 5704 2315 / 2315 Output Total 875 / 1175 2290 / 2490 2275 / 2275 700 / 700 Balance 269 / -31 2683 / 2483 3429 / 3429 1615 / 1615 Weight 106.594 kg 108.465 kg 112.689 kg 116.573 kg Microbiology Reports for the Last 24 Hours: Microbiology 08/06/19 10:08 Blood Blood Culture - Preliminary NO GROWTH AFTER 48 HOURS 08/06/19 10:08 Blood Blood Culture - Preliminary NO GROWTH AFTER 48 HOURS 08/06/19 10:22 Throat Group A Streptococcus Screen (NEO) - Final Negative for Group A Streptococcus. Assessment and Plan (1) Acute pancreatitis Current visit: Yes Status: Acute Category: Medical Code(s): K85.90 - Acute pancreatitis without necrosis or infection, unspecified (2) Sepsis Current visit: Yes Status: Acute Category: Medical Code(s): A41.9 - Sepsis, unspecified organism (3) Obesity (BMI 30.0-34.9) Current visit: Yes Status: Acute Category: Medical Code(s): E66.9 - Obesity, unspecified (4) Diabetes mellitus type 2, noninsulin dependent Current visit: Yes Status: Acute Category: Medical Code(s): E11.9 - Type 2 diabetes mellitus without complications (5) Hyperlipidemia Current visit: Yes Status: Acute Category: Medical Code(s): E78.5 - Hyperlipidemia, unspecified (6) Hypertension Current visit: Yes Status: Acute Category: Medical Code(s): I10 - Essential (primary) hypertension (7) Acute kidney injury superimposed on chronic kidney disease Current visit: Yes Status: Acute Category: Medical Code(s): N17.9 - Acute kidney failure, unspecified; N18.9 - Chronic kidney disease, unspecified The patient's infection will respond to the chosen ABx?: Yes Is the patient receiving the right drug, dose, and route?: Yes Could a more targeted ABx be ordered?: No
--- NOTE | 2019-08-09 11:11 | HMH.OTEV ---
OT Inpatient Evaluation Rehab OT IP Evaluation Start: 08/09/19 08:25 Freq: ONCE Status: Complete Protocol: Document 08/09/19 11:03 RYDER (Rec: 08/09/19 11:11 [id number] Rehab OT IP Assessment Subjective History Pt is 64 year old male who was admitted via ED on 08/06/19 due to chest and abdominal pain. Pt has a past medical history of DM Type 2, Hyperlipidemia, and HTN. Pt was oriented x3 upon arrival and agreeable to engage in therapy evaluation. Pt reports prior to being admitted he lived with his sister in law. Pt claimed he was independent with all ADL's such as dressing, showering, and feeding. However, he was dependent upon his sister in law to complete all IADLs such as cleaning, cooking, laundry , grocery shopping, etc. Pt denied the use of AE such as a rolling walker or shower chair. Subjective I am still hurting. Objective Patient Orientation Person,Place,Birthday Upper Extremity Gross ROM WFL Bed Mobility bed mobility-scooting,bed mobility - supine/sit,bed mobility - rolling Assist Level Contact Guard/Hand Hold Transfer Training Sit/Stand Transfer Assist Level Minimal x 1 (25% assist) Rehab OT IP prob,goals,plan Problems Date of Evaluation: 08/09/19 OT IP Problems Bed Mobility,Transfers,Gait, Balance,Self care,Safety Rehab Potential Rehab Potential Good Equipment Needs Assistive Devices Rolling / Wheeled Walker Plan OT intervention Plan Bed Mobility,Transfers,Gait, Balance,Self care,Safety, Therapeutic Exercise OT Plan Frequency Daily Duration LOS Discharge Goals Bed Mobility Ability Standby Assistance Sit to Stand Chair Transfer Ability Supervision/Stand by Chair Transfer Ability Supervision/Stand by Chair Transfer Technique Sit to/from Ambulatory Chair Transfer Assistive Devices Rolling Walker Self care skills fully toilet trained,uses
--- NOTE | 2019-08-09 11:31 | HMH.PTEV ---
Physical Therapy Evaluation Rehab PT IP Evaluation Start: 08/09/19 08:25 Freq: ONCE Status: Active Protocol: Document 08/09/19 11:26 RAND (Rec: 08/09/19 11:31 RAND [id number]) Subjective/History History History This is the initial IP PT evaluation for Brody Conteh. Pt is a 64 y/o male who presented through the ER w/ severe abdominal pain. Pt was admitted for pancreatitis Subjective Subjective Pt reports c/o pain in abdomen , SOA, and light head Rehab PT IP Eval Objective Appearance Patient Behavior Appropriate,Cooperative, Fatigued Patient Orientation Person,Place,Time Difficulty following instructions none Speech Pattern Soft-Spoken,Monotone,Mumbled Ambulation Patient Able to Ambulate Yes Ambulation Observation IP General Gait Pattern Observation Shuffling Step Ambulation Distance (feet) 50 Ambulation Assistive Device Rolling Walker Ambulation Ability Supervision/Stand by Balance Ability to Arise Able, uses arms to help Sitting Balance Steady, safe Standing Balance Steady, wide stance Dynamic Sitting Balance Ability Good Dynamic Standing Balance Ability Fair Transfers Bed Transfer Ability Independent Chair Transfer Ability Independent Sit to Stand Bed Transfer Ability Supervision/Stand by Sit to Stand Chair Transfer Ability Supervision/Stand by ROM All Extremities PT ROM Status WFL MMT All Extremities PT MMT WFL Rehab PT IP prob,goals,plan Problems Date of Evaluation: 08/09/19 PT IP Problems Gait,Self care,Safety Rehab Potential Rehab Potential Good Equipment Needs Assistive Devices Rolling / Wheeled Walker Plan PT Intervention Plan Transfers,Gait,Self care, Safety,Therapeutic Exercise PT Plan Frequency BID Duration LOS Discharge Goals Sit to Stand Chair Transfer Ability Supervision/Stand by Ambulation Assistive Device Rolling Walker Ambulation Distance (feet) 75 Discharge Plan PT Discharge Plan At this moment pt is considerally debilitated from illness and would benefit from ST rehab to allow return to PLOF and PLOI. If pt improves w/ IPPT during LOS pt may be safe to return home w/ HHPT. G -code Required
[2019-08-09 15:02] LABS: POC Glucose,Bedside 154 (70-110)
--- NOTE | 2019-08-09 15:20 | PC.NURSE ---
patient has had some episodes of shortness of breath and wheezing. did sit up in chair for short period. has ambulated in room to and from bathroom. urinating per urinal orange colored urine noted. some nausea after lunch noted. vitals stable
[2019-08-09 17:17] LABS: POC Glucose,Bedside 277 (70-110)
--- NOTE | 2019-08-09 18:39 | PC.NURSE ---
PT HAS C/O OF PAIN X1 SINCE IN MY CARE. MEDICATED PER MAR, WITH DESIRED RELIEF. HAS AMBULATED IN ROOM, FROM CHAIR TO BED. CALL LIGHT WITHIN REACH. VSS. WILL CONT. TO MONITOR.
--- NOTE | 2019-08-09 19:28 | PC.NURSE ---
report given to katie
--- NOTE | 2019-08-09 22:32 | PC.NURSE ---
FAMILY CALLED TO CHECK ON THIS PATIENT, PROVIDED FAMILY WITH AN UPDATE AND REASSURED TO CALL AT ANYTIME.
[2019-08-10] VITALS (10 sets, daily range): BP systolic 100–162; BP diastolic 74–87; PULSE 82–115; RESP 17–20; TEMP 36.4–37.1; O2SAT 92–95; BMI 34.8
[2019-08-10 00:37] LABS: POC Glucose,Bedside 254 (70-110)
--- NOTE | 2019-08-10 02:46 | PC.NURSE ---
A&OX3. PERRLA, ACCOUNTING POLICY CONSULTANT EQUAL BILAT. LUNGS NOTED WITH WHEEZES SCATTERED AND DIMINISHED BASES PER AUSCULTATION. 2LNC, TOLERATED WELL. PT REPORTS FEELING SOA WITH EXERTION AND WHEN PAIN IN BACK IS EXACERBATED. PT STATES IT IS LIKE I CAN NOT GET A DEEP BREATH IN. SHALLOW RESPIRATIONS NOTED AT TIMES OF DYSPNEA. ENCOURAGED USE OF INCENTIVE SPIROMETER AND NOTIFIED RT TO ADMINISTER PRN DUONEB. DUONEB ADMINISTERED PER JUN. ASKED PT TO USE INCENTIVE SPIROMETER WHILE THIS RN WAS ASSESSING PT TO DETERMINE EFFECTIVENESS OF USE, PT REFUSED TO DEMONSTRATE ADEQUATE USE. EDUCATED PT ON IMPORTANCE OF USE OF INCENTIVE SPIROMETER. PT STATED I WILL DO IT LATER. I DO NOT WANT TO DO IT RIGHT NOW. REMINDED PT TO USE INCENTIVE SPIROMETER Q1-2HWA. PT VERBALIZED UNDERSTANDING OF TEACHINGS. ABDOMEN NOTED DISTENDED, PT REPORTS IT HAS BEEN THIS WAY. , ACTIVE BOWEL SOUNDS, FIRM BUQ OF ABDOMEN PER PALPATION, BLQ OF ABDOMEN ARE SOFTER PER PALPATION, PT REPORTS TENDERNESS PER PALPATION OF ABDOMEN. C/O NAUSEA THIS SHIFT, ADMINISTERED PRN ZOFRAN PER JUN, ON REASSESSMENT, NAUSEA WAS UNRELIEVED. NOTIFIED MD SECURITY MANAGEMENT SPECIALIST OF UNRELIEVED NAUSEA. MD GAVE A ONE TIME ORDER FOR PHENERGAN, ON REASSESSMENT OF ADMINISTRATION PT WAS NOTED RESTING IN BED WITH EYES CLOSED. C/O SHARP PAIN IN LOWER PORTION OF BACK, RATING THE PAIN HIGH 8/10 ON 0-10 CELL RELINER, ADMINISTERED PRN DILAUDID PER JUN, ON REASSESSMENT PT'S PAIN WAS RELIEVED AND TOLERABLE. ADEQUATE UO, URINE NOTED DARK YELLOW, AND CLEAR. RADIAL PULSES +2, PEDAL PULSES +1. CAP REFILL <3 SEC. INDEPENDENT WITH BED MOBILITY. VSS. WILL CONTINUE TO MONITOR.
--- NOTE | 2019-08-10 05:00 | PC.NURSE ---
PT ASSISTED WITH AMBULATION X1 AND WITH A ROLLING WALKER. PT AMBULATED TO BATHROOM FOR A SHOWER, USED SHOWER CHAIR AND ASSIST X1 WITH SHOWER. PT THEN AMBULATED TO CHAIR WITH ASSIST X1 AND ROLLING WALKER. UP TO CHAIR FOR APPROXIMATELY ONE HOUR AND REQUESTED TO GO BACK TO BED. INFORMED PT THAT BREAKFAST WOULD BE HERE SOON, PT STATED I JUST WANT TO GO TO BED. ASSISTED BACK TO BED. UNSTEADY GAIT NOTED AT TIMES.
[2019-08-10 05:56] LABS: Basophils # 0.1 K/mm3 (0-0.2); Basophils % 0.9 % (0.1-2.0); Eosinophils # 0.1 K/mm3 (0.0-0.4); Eosinophils % 0.5 % (0.1-12.0); Hematocrit 39.7 % (42.0-52.0); Hemoglobin 12.4 g/dL (14.1-18.0); Lymphocytes # 0.4 K/mm3 (0.7-4.5); Lymphocytes % 3.5 % (10-50); Mean Corpuscular HGB Conc 31.3 g/dL (31.8-35.4); Mean Corpuscular Hemoglobin 33.5 pg (27.0-31.2); Mean Corpuscular Volume 106.8 fl (80-94); Mean Platelet Volume 10.7 fl (7.4-10.4); Monocytes # 0.9 K/mm3 (0.1-1.0); Monocytes % 8.6 % (1.7-9.3); Neutrophils # 9.4 K/mm3 (1.8-7.8); Neutrophils % 86.4 % (37.0-80.0); Platelet Count 182 K/mm3 (142-424); Red Blood Count 3.72 M/mm3 (4.60-6.20); Red Cell Distribution Width 14.2 % (11.5-17.5); White Blood Count 10.9 K/mm3 (4.8-10.8)
[2019-08-10 06:07] LABS: MANUAL DIFFERENTIAL MANUAL DIFFERENTIAL (MANUAL DIFF)
[2019-08-10 06:25] LABS: Alanine Aminotransferase 30 U/L (12-78); Albumin Level 3.3 g/dl (3.5-5.0); Albumin/Globulin Ratio 1.1 (1.1-1.8); Alkaline Phosphatase 68 U/L (38-126); Anion Gap 11.8 mEq/L (5-15); Aspartate Amino Transferase 44 U/L (17-59); Bilirubin,Total 1.3 mg/dl (0.2-1.3); Blood Urea Nitrogen 24 mg/dl (9-20); Carbon Dioxide 27 mmol/L (22.0-30.0); Chloride 101 mmol/L (98-107); Creatinine Clearance Estimated 115 mL/min (50-200); Estimated Glomerular Filt Rate 68 ml/min (>60); GFR (African American) 82 ML/MIN (>60); Globulin 2.9 g/dL (1.3-3.2); Glucose 180 mg/dl (74-100); Potassium 3.8 mmoL/L (3.5-5.1); Sodium 136 mmol/L (136-145); Total Protein,Serum 6.2 g/dl (6.3-8.2)
--- NOTE | 2019-08-10 08:21 | HMH.ACPN2 ---
Internal Medicine - PN: Subj *Date: 08/10/19 *Time: 08:50 Interval history: Patient did well overnight. Still having some intermittent belly pain though improving. Tolerating liquid diet. cutting machine tender on palpation. Patient tolerating supplemental oxygen. Denies significant shortness of breath. Afebrile hemodynamically stable overnight. Physical therapy saw patient yesterday and reported weakness and likely needing rehab. We will continue to see him today. Exam Vital signs and Labs for Last 24 Hours: Temp Pulse Resp BP Pulse Ox 97.8 F 94 H 17 100/74 L 94 L 08/10/19 08:00 08/10/19 08:00 08/10/19 08:00 08/10/19 08:00 08/10/19 08:00 Laboratory Results - last 24 hr 08/09/19 05:35: Total Counted 100, Neutrophils % (Manual) 86 H, Lymphocytes % (Manual) 4 L, Monocytes % (Manual) 9, Eosinophils % (Manual) 1, Platelet Estimate Moderate decrease, Anisocytosis 1+, Macrocytosis 1+ 08/09/19 11:20: POC Glucose 154 H 08/09/19 17:06: POC Glucose 277 H 08/09/19 20:18: POC Glucose 254 H 08/10/19 05:45: WBC 10.9 H, RBC 3.72 L, Hgb 12.4 L, Hct 39.7 L, MCV 106.8 H, MCH 33.5 H, MCHC 31.3 L, RDW 14.2, Plt Count 182, MPV 10.7 H, Neut % (Auto) 86.4 H, Lymph % (Auto) 3.5 L, [place] % (Auto) 8.6, Eos % (Auto) 0.5, Baso % (Auto) 0.9, Neut # (Auto) 9.4 H, Lymph # (Auto) 0.4 L, [place] # (Auto) 0.9, Eos # (Auto) 0.1, Baso # (Auto) 0.1 08/10/19 05:45: Sodium 136, Potassium 3.8, Chloride 101, Carbon Dioxide 27, Anion Gap 11.8, BUN 24 H, Creatinine 1.10, Estimated Creat Clear 115, Estimated GFR 68, Est GFR ( Amer) 82 D, Glucose 180 H, Calcium 8.0 L D, Total Bilirubin 1.3, AST 44, ALT 30, Alkaline Phosphatase 68, Total Protein 6.2 L, Albumin 3.3 L, Globulin 2.9, Albumin/Globulin Ratio 1.1 I & O for Last 24 hours: Intake & Output 08/07/19 08/08/19 08/09/19 08/10/19 23:59 23:59 23:59 23:59 Intake Total 4973 / 4973 5704 / 5704 3216 / 3216 1072 / 1072 Output Total 2290 / 2490 2275 / 2275 3450 / 3450 825 / 825 Balance 2683 / 2483 3429 / 3429 -234 / -234 247 / 247 Weight 108.465 kg 112.689 kg 117 kg 119.295 kg Narrative: No scleral icterus or jaundice, alert, oriented, comfortable on oxygen with no dyspnea. Lungs are clear, no rhonchi or wheeze. Posterior lung murillo clear Heart rate regular, no murmurs Abdomen soft, tender in the upper abdomen, more so in left upper quadrant and flank but is better than yesterday. Trace edema, no clubbing Neurologically intact Patient is globally weak. Assessment and Plan (1) Acute pancreatitis Current visit: Yes Status: Acute Category: Medical Code(s): K85.90 - Acute pancreatitis without necrosis or infection, unspecified (2) Sepsis Current visit: Yes Status: Acute Category: Medical Code(s): A41.9 - Sepsis, unspecified organism (3) Obesity (BMI 30.0-34.9) Current visit: Yes Status: Acute Category: Medical Code(s): E66.9 - Obesity, unspecified (4) Diabetes mellitus type 2, noninsulin dependent Current visit: Yes Status: Acute Category: Medical Code(s): E11.9 - Type 2 diabetes mellitus without complications (5) Hyperlipidemia Current visit: Yes Status: Acute Category: Medical Code(s): E78.5 - Hyperlipidemia, unspecified (6) Hypertension Current visit: Yes Status: Acute Category: Medical Code(s): I10 - Essential (primary) hypertension (7) Acute kidney injury superimposed on chronic kidney disease Current visit: Yes Status: Acute Category: Medical Code(s): N17.9 - Acute kidney failure, unspecified; N18.9 - Chronic kidney disease, unspecified - Assessment and plan all Dx Assessment and Plan for all problems:: Kidney injury resolved, continue current therapy and fluids. Physical/occupational therapy evaluation for his weakness. Checked ultrasound and chest x-ray: No signs of gallstone as etiology for pancreatitis; chest x-ray with some effusion and atelectasis. Stable oxygen requirement. Added lipid panel today to assess for
[2019-08-10 08:37] LABS: Chol/HDL Ratio 6.6 (1-3.5); Cholesterol 113 mg/dl (140-200); HDL Cholesterol 17 mg/dl (40-60); Triglycerides 168 mg/dl (30-150); VLDL Cholesterol 34 mg/dL (0-40)
[2019-08-10 08:48] LABS: Direct LDL Cholesterol 76.46 mg/dL (100-129)
--- NOTE | 2019-08-10 11:25 | SW/DCPLANNER ---
Addendum entered by Kiesha Morocho 08/13/19 14:00: PATIENT IS TRANSFERRING TO [facility] IN [place]... Original Note: WENT IN TO SPEAK WITH PATIENT TODAY REGARDING HIS DISCHARGE PLANS: MR POWELL PRESENTED INTO THE HOSPITAL WITH A DIAGNOSIS OF PANCREATITIS.... PRIOR TO HIS HOSPITAL STAY HE WAS AT HOME WITH HIS BROTHER AND SISTER IN LAW.. HE WAS SEEN BY OT AND PT AND BOTH AGREED HE MAY NEED TO GO SOMEWHERE FOR A SHORT AMOUNT OF TIME FOR SOME REHAB SERVICES... I DID HAVE A LONG TALK WITH HIM AND HE STATED HE CAN NOT AFFORD TO GO ANYWHERE BECAUSE HE HAS OUT OF POCKET WITH HIS COMMERCIAL INSURANCE.. WILL LET MD KNOW AND PATIENT MAY BE BETTER SUITED FOR HOME HEALTH SERVICES AND CAN BE SET UP AT TIME OF DISCHARGE....
[2019-08-10 11:45] LABS: POC Glucose,Bedside 356 (70-110)
[2019-08-10 11:46] LABS: Eosinophils % 1 % (0-3); Lymphocytes % 5 % (10-50); Macrocytosis 2+; Monocytes % 8 % (2-9); Neutrophils % 86 % (42-76); Platelet Estimate Normal; Total Cells Counted 100
[2019-08-10 12:01] LABS: POC Glucose,Bedside 161 (70-110)
[2019-08-10 17:03] LABS: POC Glucose,Bedside 374 (70-110)
--- NOTE | 2019-08-10 20:11 | PC.NURSE ---
Addendum entered by Markos Fair RN 08/10/19 20:14: Did notify Dr. Malagon that pt has been tachycardic this shift, although otherwise no changes. NNO were given. Original Note: Pt alert and oriented x 4 and able to make needs known. RR even. Have noted some exertional dyspnea. RR remain wnl. Pt does continue on 2 L NC at this time. Have medicated per jun for abd pain, abd is distended and tender upon palpation. Has used urinal this shift. IV changed as it was due to be and pt has a 20 in LAC. LR continues @ 150. Pt did have audible wheezing earlier, it has lessened at this time with the neb tx's. VSS. have given report on pt.
[2019-08-11] VITALS (9 sets, daily range): BP systolic 142–164; BP diastolic 84–96; PULSE 75–121; RESP 18–24; TEMP 36.9–37.1; O2SAT 86–97; BMI 35.2
[2019-08-11 00:52] LABS: POC Glucose,Bedside 151 (70-110)
--- NOTE | 2019-08-11 04:01 | PC.NURSE ---
Pt continues to c/o abdominal discomfort and nausea. No vomiting noted. He states he doesn't feel any better. BS active. Pt is passing gas. Abdomen distended and tender.He has ambulated to bathroom with assist x1. Tolerated fair. Gait is unsteady at times. Pt remains on 2L NC. Will obtain RA this AM. Remains Sinus Tach. Other VSS. Will continue to monitor.
[2019-08-11 07:14] LABS: Basophils # 0.1 K/mm3 (0-0.2); Basophils % 0.5 % (0.1-2.0); Eosinophils % 0.3 % (0.1-12.0); Hematocrit 37.7 % (42.0-52.0); Hemoglobin 11.9 g/dL (14.1-18.0); Lymphocytes # 0.5 K/mm3 (0.7-4.5); Lymphocytes % 5.1 % (10-50); Mean Corpuscular HGB Conc 31.5 g/dL (31.8-35.4); Mean Corpuscular Hemoglobin 33.2 pg (27.0-31.2); Mean Corpuscular Volume 105.4 fl (80-94); Mean Platelet Volume 9.9 fl (7.4-10.4); Monocytes # 0.6 K/mm3 (0.1-1.0); Monocytes % 6.1 % (1.7-9.3); Neutrophils # 8.8 K/mm3 (1.8-7.8); Platelet Count 166 K/mm3 (142-424); Red Blood Count 3.58 M/mm3 (4.60-6.20); White Blood Count 9.9 K/mm3 (4.8-10.8)
[2019-08-11 07:16] LABS: MANUAL DIFFERENTIAL MANUAL DIFFERENTIAL (MANUAL DIFF)
[2019-08-11 07:19] LABS: Chloride 99 mmol/L (98-107); Sodium 136 mmol/L (136-145)
[2019-08-11 07:21] LABS: Blood Urea Nitrogen 19 mg/dl (9-20); Creatinine Clearance Estimated 130 mL/min (50-200); Estimated Glomerular Filt Rate 86 ml/min (>60); GFR (African American) 103 ML/MIN (>60)
[2019-08-11 07:22] LABS: Alanine Aminotransferase 28 U/L (12-78); Albumin Level 3.1 g/dl (3.5-5.0); Albumin/Globulin Ratio 1.1 (1.1-1.8); Alkaline Phosphatase 76 U/L (38-126); Aspartate Amino Transferase 42 U/L (17-59); Bilirubin,Total 1.3 mg/dl (0.2-1.3); Calcium 8.3 mg/dl (8.4-10.2); Carbon Dioxide 27 mmol/L (22.0-30.0); Globulin 2.9 g/dL (1.3-3.2); Glucose 158 mg/dl (74-100); Lipase 142 U/L (23-300)
--- NOTE | 2019-08-11 08:13 | HMH.ACPN2 ---
Internal Medicine - PN: Subj *Date: 08/11/19 *Time: 08:13 Interval history: Patient sitting up in a chair today. Feels a little better, oxygen has been lowered to 1.5 L with acceptable oxygen saturations. Patient has been working with physical therapy. Is not willing to consider going home with skilled care or to a skilled care facility because of cost issues. Also is, again because of cost issues. very reticent about going home with oxygen therapy. Exam Vital signs and Labs for Last 24 Hours: Temp Pulse Resp BP Pulse Ox 98.6 F 110 H 18 164/86 H 91 L 08/11/19 04:00 08/11/19 06:00 08/11/19 04:00 08/11/19 04:00 08/11/19 06:00 Laboratory Results - last 24 hr 08/10/19 05:45: Total Counted 100, Neutrophils % (Manual) 86 H, Lymphocytes % (Manual) 5 L, Monocytes % (Manual) 8, Eosinophils % (Manual) 1, Platelet Estimate Normal, Macrocytosis 2+ 08/10/19 05:45: Triglycerides 168 H, Cholesterol 113 L, LDL Cholesterol Direct 76.46 L, VLDL Cholesterol 34, HDL Cholesterol 17 L, Cholesterol/HDL Ratio 6.6 H 08/10/19 05:45: POC Glucose 161 H 08/10/19 11:38: POC Glucose 356 H* 08/10/19 16:47: POC Glucose 374 H* 08/10/19 19:45: POC Glucose 151 H 08/11/19 06:30: WBC 9.9, RBC 3.58 L, Hgb 11.9 L, Hct 37.7 L, MCV 105.4 H, MCH 33.2 H, MCHC 31.5 L, RDW 14.0, Plt Count 166, MPV 9.9, Neut % (Auto) 88.0 H, Lymph % (Auto) 5.1 L, [place] % (Auto) 6.1, Eos % (Auto) 0.3, Baso % (Auto) 0.5, Neut # (Auto) 8.8 H, Lymph # (Auto) 0.5 L, [place] # (Auto) 0.6, Eos # (Auto) 0.0, Baso # (Auto) 0.1 08/11/19 06:30: Sodium 136, Potassium 4.0, Chloride 99, Carbon Dioxide 27, Anion Gap 14.0, BUN 19, Creatinine 0.90, Estimated Creat Clear 130, Estimated GFR 86, Est GFR ( Amer) 103 D, Glucose 158 H, Calcium 8.3 L, Total Bilirubin 1.3, AST 42, ALT 28, Alkaline Phosphatase 76, Total Protein 6.0 L, Albumin 3.1 L, Globulin 2.9, Albumin/Globulin Ratio 1.1, Lipase 142 I & O for Last 24 hours: Intake & Output 08/08/19 08/09/19 08/10/19 08/11/19 11:59 11:59 11:59 11:59 Intake Total 5952 / 5952 5360 / 5360 2213 / 2213 3435 / 3435 Output Total 1650 / 1650 2825 / 2825 3875 / 3875 1250 / 1250 Balance 4302 / 4302 2535 / 2535 -1662 / -1662 2185 / 2185 Weight 248 lb 7 oz 257 lb 263 lb 265 lb 8 oz Narrative: Up in the chair, breathing comfortably. Left lower lung field has reduced air entry. Right side is clear. Heart rate regular. Abdomen is softer. He has less tenderness. No edema or clubbing. Oriented x3. ENT exam. No neuro deficits. Assessment and Plan (1) Acute pancreatitis Current visit: Yes Status: Acute Category: Medical Code(s): K85.90 - Acute pancreatitis without necrosis or infection, unspecified (2) Sepsis Current visit: Yes Status: Acute Category: Medical Code(s): A41.9 - Sepsis, unspecified organism (3) Obesity (BMI 30.0-34.9) Current visit: Yes Status: Acute Category: Medical Code(s): E66.9 - Obesity, unspecified (4) Diabetes mellitus type 2, noninsulin dependent Current visit: Yes Status: Acute Category: Medical Code(s): E11.9 - Type 2 diabetes mellitus without complications (5) Hyperlipidemia Current visit: Yes Status: Acute Category: Medical Code(s): E78.5 - Hyperlipidemia, unspecified (6) Hypertension Current visit: Yes Status: Acute Category: Medical Code(s): I10 - Essential (primary) hypertension (7) Acute kidney injury superimposed on chronic kidney disease Current visit: Yes Status: Acute Category: Medical Code(s): N17.9 - Acute kidney failure, unspecified; N18.9 - Chronic kidney disease, unspecified (8) Left lower lobe pneumonia Current visit: Yes Status: Acute Category: Medical Code(s): J18.9 - Pneumonia, unspecified organism - Assessment and plan all Dx Assessment and Plan for all problems:: Pancreatitis is clinically improving. Patient has pancreatitis associated lung injury/left lower lobe pneumonia. Continue current antibiotics. Corona guerra
[2019-08-11 08:27] LABS: Lymphocytes % 4 % (10-50); Monocytes % 9 % (2-9); Neutrophils % 87 % (42-76); Platelet Estimate Normal; Total Cells Counted 100
[2019-08-11 08:28] LABS: Macrocytosis 1+
[2019-08-11 12:11] LABS: POC Glucose,Bedside 283 (70-110)
--- NOTE | 2019-08-11 15:52 | DIET.NUTRFU ---
Pt is still having pancreatic pain hindering his PO intake, toleration is fair-well. BG have been >300 at times with average of 200. Continuing to monitor.
--- NOTE | 2019-08-11 16:34 | XR_ITS ---
PROCEDURE: XR CHEST PORTABLE CLINICAL HISTORY: dyspnea COMPARISON: CT ABDOMEN PELVIS WO CON from 08/06/2019 CT ANGIO CHEST from 08/06/2019 XR CHEST 2V from 08/09/2019 FINDINGS: There is cardiomegaly without failure. There remains consolidation in the left lower lobe consistent with pneumonia with possible small effusion not significantly changed from 08/09/2019 No acute bony abnormalities. IMPRESSION: Left lower lobe pneumonia/volume loss with small effusion not significantly changed Dictated by: Andrew Newman MD 08/11/2019 17:05 Electronically signed by Andrew Newman MD in [place] 08/11/2019 17:05
--- NOTE | 2019-08-11 16:36 | PC.NURSE ---
Pt has had a change in breathing pattern. One norm breathe, then exertional breath. MD Dr. Morales here and ordered a cxr stat. All VS are wnl. RR 24 at this time. Has continued to c/o of abd pain - burning sensation. Will cont to mx.
--- NOTE | 2019-08-11 18:12 | XR_ITS ---
PROCEDURE: XR CHEST PORTABLE CLINICAL HISTORY: left effusion (s/p thoracentesis) Follow-up thoracentesis COMPARISON: CT ANGIO CHEST from 08/06/2019 XR CHEST 2V from 08/09/2019 XR CHEST PORTABLE from 08/11/2019 FINDINGS: Cardiomegaly without failure. There has been improvement in the left-sided pleural effusion in the left lower lobe volume loss. No evidence of pneumothorax. The right lung is clear No acute bony abnormalities. IMPRESSION: Improvement in left-sided effusion and volume loss with no evidence of pneumothorax Dictated by: Andrew Newman MD 08/11/2019 20:14 Electronically signed by Andrew Newman MD in [place] 08/11/2019 20:14
--- NOTE | 2019-08-11 18:14 | HMH.GSCON ---
*Admission Date: 08/06/19 *Reason for consult:: Left pleural effusion *History of present illness: This is a 64-year-old gentleman seen in consultation from Dr. Morales for evaluation regarding a left-sided pleural effusion. He has been hospitalized for pancreatitis. After recently developing increased shortness of air he was diagnosed with likely left-sided pneumonia with concomitant effusion/atelectasis. Repeat chest x-ray reveals moderate effusion to be somewhat stable. The surgical service was consulted for thoracentesis. Review of Systems - *Respiratory Reports shortness of breath [facility] History Medical History: Reports:: Diabetes Mellitus Type 2, Hyperlipidemia, Hypertension *Have you ever received a pneumonia vaccine?: No *Have you received a flu vaccine this season?: Yes - *Social History Educational Level: Attended Grade School Alcohol Intake: never *Occupational Status:: unemployed Household Members: family *Travel in the last 8 weeks: None Family Hx:: No significant family history Meds Home Medications Medication Instructions Recorded Confirmed Type Aspirin [Aspirin 81mg EC Tab] 81 mg PO DAILY 08/06/19 08/06/19 History Diclofenac Sodium [Diclofenac 75mg 75 mg PO BID 08/06/19 08/06/19 History Tab] Empagliflozin [Jardiance] 25 mg PO DAILY 08/06/19 08/06/19 History Ezetimibe 10 mg PO DAILY 08/06/19 08/06/19 History Fenofibrate 160 mg PO DAILY 08/06/19 08/06/19 History Levothyroxine Sodium [Synthroid 75 mcg PO DAILY 08/06/19 08/06/19 History 75mcg (0.075mg) tablet] Lisinopril/Hydrochlorothiazide 1 tab PO DAILY 08/06/19 08/06/19 History [Lisinopril-Hctz 20-25 mg Tab*] Metformin HCl 1,000 mg PO BID 08/06/19 08/07/19 History glipiZIDE [Glucotrol 5mg tablet] 5 mg PO BID 08/06/19 08/06/19 History Semaglutide [Ozempic] 0.25 mg SQ WEEKLY 08/07/19 08/07/19 History Allergies Allergy/AdvReac Type Severity Reaction Status Date / Time No Known Allergies Allergy Verified 08/06/19 09:58 Exam Vital signs and Labs for Last 24 Hours: Temp Pulse Resp BP Pulse Ox 98.8 F 110 H 24 145/84 H 93 L 08/11/19 16:00 08/11/19 16:00 08/11/19 16:00 08/11/19 16:00 08/11/19 16:00 Laboratory Results - last 24 hr 08/10/19 19:45: POC Glucose 151 H 08/11/19 06:30: WBC 9.9, RBC 3.58 L, Hgb 11.9 L, Hct 37.7 L, MCV 105.4 H, MCH 33.2 H, MCHC 31.5 L, RDW 14.0, Plt Count 166, MPV 9.9, Neut % (Auto) 88.0 H, Lymph % (Auto) 5.1 L, [place] % (Auto) 6.1, Eos % (Auto) 0.3, Baso % (Auto) 0.5, Neut # (Auto) 8.8 H, Lymph # (Auto) 0.5 L, [place] # (Auto) 0.6, Eos # (Auto) 0.0, Baso # (Auto) 0.1, Total Counted 100, Neutrophils % (Manual) 87 H, Lymphocytes % (Manual) 4 L, Monocytes % (Manual) 9, Platelet Estimate Normal, Macrocytosis 1+ 08/11/19 06:30: Sodium 136, Potassium 4.0, Chloride 99, Carbon Dioxide 27, Anion Gap 14.0, BUN 19, Creatinine 0.90, Estimated Creat Clear 130, Estimated GFR 86, Est GFR ( Amer) 103 D, Glucose 158 H, Calcium 8.3 L, Total Bilirubin 1.3, AST 42, ALT 28, Alkaline Phosphatase 76, Total Protein 6.0 L, Albumin 3.1 L, Globulin 2.9, Albumin/Globulin Ratio 1.1, Lipase 142 08/11/19 11:58: POC Glucose 283 H I & O for Last 24 hours: Intake & Output 08/09/19 08/10/19 08/11/19 08/12/19 11:59 11:59 11:59 11:59 Intake Total 5360 / 5360 2213 / 2213 3435 / 3435 1080 / 1080 Output Total 2825 / 2825 3875 / 3875 3575 / 3575 2125 / 2125 Balance 2535 / 2535 -1662 / -1662 -140 / -140 -1045 / -1045 Weight 257 lb 263 lb 265 lb 8 oz Microbiology Reports for the Last 24 Hours: Microbiology 08/06/19 10:08 Blood Blood Culture - Final NO GROWTH AFTER 5 DAYS 08/06/19 10:08 Blood Blood Culture - Final NO GROWTH AFTER 5 DAYS - Constitutional no acute distress - *Routine Respiratory Exam Absent: respiratory distress - *Routine Cardiovascular Exam Present: tachycardia Results - Labs 08/11/19 06:30 08/11/19 06:30 Laboratory Res
--- NOTE | 2019-08-11 18:17 | HMH.OPNOTE ---
Date of procedure: 08/11/19 Pre-op Diagnosis:: Left pleural effusion Post-op Diagnosis:: Same Procedure performed:: Left-sided thoracentesis Surgeon:: Dangelo Brady MD Anesthesia: local Estimated blood loss (mL): 1 Operative findings:: 650 mL of slightly cloudy straw-colored fluid removed Thoracentesis labs sent Postprocedural chest x-ray pending Operative note:: After informed consent was obtained the patient was placed in a seated position (in the hospital room). His back was prepped and draped in a sterile fashion after auscultation was completed to ole the appropriate tap site . After infiltration local anesthetic a small stab incision was made with a #11 scalpel. The thoracentesis catheter was secured in position and 650 mL of slightly cloudy straw-colored fluid was removed. A portion of the fluid was obtained for thoracentesis labs . The catheter was carefully removed. A Tegaderm was placed in position and the patient was placed back in a supine position. Condition: stable Disposition: no change Specimens:: Fluid obtained for thoracentesis labs Complications:: No immediate
[2019-08-11 19:22] LABS: Lactate Dehydrogenase 621 U/L (313-618)
[2019-08-11 19:37] LABS: Appearance,Body Fld. Normal; Source, Body Fld. Thoracentesis Fluid; Volume,Body Fld. 650 mL
[2019-08-11 19:38] LABS: Mononuclear WBCs,Body Fluid 26 %; Polynuclear WBC,Body Fluid 74 %; RBC,Body Fluid < 10 cells/uL (< 10 X 10^3); TNC,Body Fluid 1046 cells/uL (< 1000)
--- NOTE | 2019-08-11 19:55 | PC.NURSE ---
Dr. Brady did come in and do thoracentesis to left lung with 650 ml drainage removed. Pt does have a tegaderm in place with scant amt of sangious drainage noted and has done well since procedure. VSS a this. Pt states he feels some better. Up to chair at this time. Continues on 1.5 L
[2019-08-12 00:54] LABS: POC Glucose,Bedside 324 (70-110)
[2019-08-12 00:54] LABS: POC Glucose,Bedside 102 (70-110)
[2019-08-12 04:00] VITALS: BP 156/95; PULSE 106; RESP 20; TEMP 36.8; O2SAT 96
--- NOTE | 2019-08-12 04:59 | PC.NURSE ---
A&OX4. PT IN BED T/O MAJORITY OF SHIFT. PT USING URINAL TO VOID, WITH ENCOURAGEMENT. PT HAS BEEN INCONTINENT AT TIMES TO BLADDER. PT AMBULATED TO BATHROOM WITH WALKER AND 1 ASSIST, HAD A BM. PT ABLE TO ANSWER ALL QUESTIONS BUT RESPONSE IS VERY SLOW. PT STATED HE WAS NAUSEAUS AND HIS STOMACH WAS BURNING, ADMINISTERED MED PER JUN. PT HAS HAD NO SOA THIS SHIFT. ON REASSESSMENT, PT RESTING IN BED. VSS WILL CONTINUE TO MONITOR.
[2019-08-12 05:00] VITALS: BMI 34.2
--- NOTE | 2019-08-12 05:10 | PC.NURSE ---
RN NOTIFIED OF WEIGHT LOSS.
[2019-08-12 06:41] VITALS: PULSE 106; O2SAT 94
--- NOTE | 2019-08-12 07:43 | PC.NURSE ---
NOTIFIED MD OF PT WEIGHT LOSS
[2019-08-12 07:55] VITALS: BP 145/81; PULSE 110; RESP 20; TEMP 36.7; O2SAT 93
--- NOTE | 2019-08-12 08:21 | PC.NURSE ---
pt had full linen and gown change at this time
[2019-08-12 08:29] VITALS: PULSE 110
--- NOTE | 2019-08-12 08:37 | HMH.ACPN2 ---
Internal Medicine - PN: Subj *Date: 08/12/19 *Time: 08:37 Interval history: 64-year-old male with pancreatitis. He slept well overnight. Eating well however still having abdominal pain when he eats. Globally weak. Still requiring IV fluids continuously. Breathing somewhat better since thoracentesis yesterday though still requiring supplemental oxygen. Has been up to bedside chair this morning. Complains of abdominal pain, denies fever, nausea, vomiting. Does have some loose stools. Exam Vital signs and Labs for Last 24 Hours: Temp Pulse Resp BP Pulse Ox 98.0 F 110 H 20 145/81 H 93 L 08/12/19 07:55 08/12/19 08:29 08/12/19 07:55 08/12/19 07:55 08/12/19 07:55 Laboratory Results - last 24 hr 08/11/19 06:30: Lactate Dehydrogenase 621 H 08/11/19 11:58: POC Glucose 283 H 08/11/19 16:18: POC Glucose 324 H* 08/11/19 18:05: Fluid Source Thoracentesis fluid, Fluid Volume 650, Fluid Appearance Normal, Fluid RBC (Auto) < 10, Fld Tot Nucleated Cell 1046, Fld Polynuclear WBCs % 74, Fld Mononuclear WBCs % 26 08/11/19 22:02: POC Glucose 102 I & O for Last 24 hours: Intake & Output 08/09/19 08/10/19 08/11/19 08/12/19 23:59 23:59 23:59 23:59 Intake Total 3216 / 3216 3240 / 3240 4387 / 4387 1982 / 1982 Output Total 3450 / 3450 2625 / 2625 5200 / 5200 700 / 700 Balance -234 / -234 615 / 615 -813 / -813 1283 / 1283 Weight 117 kg 119.295 kg 120.429 kg 117.027 kg Microbiology Reports for the Last 24 Hours: Microbiology 08/11/19 18:05 Thoracic Fluid Gram Stain - Final 08/06/19 10:08 Blood Blood Culture - Final NO GROWTH AFTER 5 DAYS 08/06/19 10:08 Blood Blood Culture - Final NO GROWTH AFTER 5 DAYS Narrative: Sitting up in bed on exam. Breathing comfortably on 2 L nasal cannula Lungs with good air movement bilaterally, faint wheeze on right, left with good air movement. Heart rate regular with occasional PVC. Abdomen is softer but still distended, tender to palpation left upper quadrant. Trace edema, no clubbing Oriented x3. ENT exam. No neuro deficits. Assessment and Plan (1) Acute pancreatitis Current visit: Yes Status: Acute Category: Medical Code(s): K85.90 - Acute pancreatitis without necrosis or infection, unspecified Severe pancreatitis. Patient has 6 points on [place]'s criteria (40% mortality risk) -Continue fluid resuscitation, continue diet. Tolerating well. Will consider repeat abdominal imaging if continues to have significant pain over the next 24 hours. -Adjusting pain regimen today (2) Sepsis Current visit: Yes Status: Acute Category: Medical Code(s): A41.9 - Sepsis, unspecified organism (3) Obesity (BMI 30.0-34.9) Current visit: Yes Status: Acute Category: Medical Code(s): E66.9 - Obesity, unspecified (4) Diabetes mellitus type 2, noninsulin dependent Current visit: Yes Status: Acute Category: Medical Code(s): E11.9 - Type 2 diabetes mellitus without complications (5) Hyperlipidemia Current visit: Yes Status: Acute Category: Medical Code(s): E78.5 - Hyperlipidemia, unspecified (6) Hypertension Current visit: Yes Status: Acute Category: Medical Code(s): I10 - Essential (primary) hypertension (7) Acute kidney injury superimposed on chronic kidney disease Current visit: Yes Status: Acute Category: Medical Code(s): N17.9 - Acute kidney failure, unspecified; N18.9 - Chronic kidney disease, unspecified (8) Left lower lobe pneumonia Current visit: Yes Status: Acute Category: Medical Code(s): J18.9 - Pneumonia, unspecified organism (9) Pleural effusion, left Current visit: Yes Status: Acute Category: Medical Code(s): J90 - Pleural effusion, not elsewhere classified - Assessment and plan all Dx Assessment and Plan for all problems:: Patient still quite symptomatic. Feeling somewhat better after thoracentesis though stil
[2019-08-12 14:54] LABS: POC Glucose,Bedside 190 (70-110)
[2019-08-12 15:11] VITALS: BP 154/90; PULSE 104; RESP 20; TEMP 36.8; O2SAT 94
--- NOTE | 2019-08-12 15:36 | PC.NURSE ---
patient has been up to chair a couple times this shift. did start complaining of pain later in shift and noted to be slightly short of breath. oxycodone attempted. after 30 minutes patient stated pain in abdomen was even worse so give iv dilaudid per mar. patient noted get a little sleepy after. does appear short of breath. redness to areas around scrotum and folds, starting to crack open. patient drinking well. vitals have been stable. patient states he has a good understanding of checking his finger sticks. rings out as needed. will continue to monitor.
[2019-08-12 16:17] LABS: POC Glucose,Bedside 138 (70-110)
[2019-08-12 16:17] LABS: POC Glucose,Bedside 236 (70-110)
[2019-08-12 16:17] LABS: POC Glucose,Bedside 214 (70-110)
[2019-08-12 17:50] LABS: POC Glucose,Bedside 148 (70-110)
[2019-08-12 19:30] VITALS: BP 158/87; PULSE 105; RESP 24; TEMP 36.7; O2SAT 96
[2019-08-12 20:14] LABS: POC Glucose,Bedside 263 (70-110)
[2019-08-13 03:43] VITALS: BP 160/90; PULSE 114; RESP 24; TEMP 37.2; O2SAT 92
--- NOTE | 2019-08-13 03:49 | PC.NURSE ---
nurse made aware of BP
[2019-08-13 03:53] VITALS: O2SAT 87
[2019-08-13 04:47] VITALS: BMI 34.9
--- NOTE | 2019-08-13 05:07 | PC.NURSE ---
A&OX4. PT SLOW TO ANSWER QUESTIONS AT TIMES. PT TOLERATING 2LNC THIS SHIFT. PT HAS REMAINED IN BED RESTING MAJORITY OF SHIFT. THIS NURSE EDUCATED PT ON IMPORTANCE OF USING IS, AND MOVING AROUND IN ROOM. PT HAS HAD MULTIPLE EPISODES OF PAIN THIS SHIFT, IN LOWER BACK AND ABD, 8 ON 1-10 SCALE. TREATED WITH PERCOCET AND DILAUDID PER MAR. ON REASSESSMENT, PT RESTING IN BED. PT IS GETTING BETTER AT USING URINAL TO VOID. NO OTHER COMPLAINTS, VSS WILL CONTINUE TO MONITOR.
--- NOTE | 2019-08-13 06:09 | PC.NURSE ---
PT STATES THAT IT SANTANA WHEN I PEE. PT HAS HAD QUITE A BIT OF URINE OUTPUT THIS SHIFT.
[2019-08-13 06:14] LABS: POC Glucose,Bedside 161 (70-110)
[2019-08-13 06:42] VITALS: PULSE 122; O2SAT 93
--- NOTE | 2019-08-13 07:57 | CT_ITS ---
PROCEDURE: CT ABDOMEN WO/W CON CLINICAL HISTORY: Pancreatitis with worsening pain Pancreatitis with worsening pain COMPARISON: CT ABDOMEN PELVIS WO CON from 08/06/2019 TECHNIQUE: Images are obtained without and with IV contrast. 3 phase post enhanced images are obtained following the intravenous administration 75 mL Optiray 350 Axial images obtained with sagittal and coronal reformats. All CT scans at the facility use one or more dose reduction, viz: automated exposure control, ma/kV adjustment per patient size (including targeted exams where dose is matched to indication, i.e. head), or iterative reconstruction technique. FINDINGS: There are atelectatic changes in the right lower lobe with trace right effusion. There is moderate volume loss of the left lower lobe with collapse of the basilar segments and aeration of the superior segment. Small left pleural effusion is present. Coronary artery calcifications are noted. There is diffuse fatty liver infiltration. The spleen, adrenal glands, and kidneys have an unremarkable appearance. There is diffuse heterogeneous enlargement of the pancreas consistent with acute pancreatitis. Previously there was moderate fatty infiltration of the body and head of the pancreas with inflammation noted in the tail the pancreas. Pancreatitis is now present throughout the pancreas. There is heterogeneous enhancement of the pancreas raising the suspicion of necrotic pancreatitis. This is somewhat difficult to evaluate as previously there was diffuse fatty infiltration. There has been progression of peripancreatic phlegmonous change along both the body head and tail the pancreas. There is thickening of the right anterior pararenal fascia. Small amount fluid is present in the pelvis and right pericolic gutter. There is no gas evident within the pancreas.. There are few small periaortic lymph nodes. Gallbladder is distended. There is thickening of the adjacent duodenum consistent with inflammatory changes from the pancreatitis. 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 IMPRESSION: 1. There has been marked interval progression of the acute pancreatitis with heterogeneous enhancement of the entire pancreas suspicious for necrotic pancreatitis. This is somewhat difficult to evaluate as there was diffuse fatty infiltration of the pancreas on the previous exam which could account for some of this heterogeneous density. No gas evident within the pancreas. There is worsening peripancreatic phlegmonous changes and peripancreatic effusions 2. Diffuse fatty liver. 3. 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 4. Small bilateral pleural effusions left larger than right with moderate left lower lobe volume loss Dictated by: Andrew Newman MD 08/13/2019 09:38 Electronically signed by Andrew Newman MD in [place] 08/13/2019 09:38
--- NOTE | 2019-08-13 07:57 | CA_ITS ---
APPROVED REPORT EXAM: Comprehensive 2D, Doppler, and color-flow Echocardiogram Retail Business Manager: Natasha Denis RT(R) Ht: 6 ft 1 in Wt: 264lbs BSA: 2.42 BP: 160/70 mmHg Indications: pancreatitis, tachycardia, CHF, HTN, DM, Obesity, Hyperlipidemia, sepsis, CKD, pneumonia, Lt pleural effusion 2D Dimensions LVOT 1.94 cm (M/F) 1.5-2.5 M-Mode Dimensions RVDd 2.33 cm (0.9-2.6) LVDd 4.46 cm (3.5-5.7) LVDs 3.37 cm (3.5-5.7) IVSd 1.12 cm (0.6-1.1) PWd 1.20 cm (0.6-1.1) EF (Teich) 48.70% FS 24.40% EDV (Teich) 90.50 mL ESV (Teich) 46.40 mL LV Diastology E/A Ratio 0.89 Mitral Valve MV A Velocity 114.00 (40-130 cm/s) Left Ventricle Left atrium is mildly enlarged, left ventricle is normal size, mild concentric left ventricular hypertrophy, hyperdynamic left ventricular systolic function, visually estimated ejection fraction over 65% with no regional wall motion abnormality, grade 1 diastolic dysfunction seen without tissue Doppler evidence of raise left atrial pressure. Right Ventricle Right atrium and right ventricular normal size and contractility. Aortic Valve Aortic valve is minimally thickened and calcified leaflet continue to display good mobility, there is no aortic stenosis or aortic insufficiency. Mitral Valve Mitral valve is grossly normal, there is mild mitral regurgitation. Tricuspid Valve Tricuspid valve is grossly normal, there is mild tricuspid regurgitation. Pulmonic Valve Pulmonic valve is poorly visualized. Great Vessels Aortic root is normal size. Pericardium No significant pericardial effusion noted. Conclusion 1. Mildly enlarged left atrium, normal left ventricular size, mild concentric left ventricular hypertrophy, hyperdynamic left ventricular systolic function, visually estimated ejection fraction over 65% with no regional wall motion abnormality, grade 1 diastolic dysfunction seen without tissue Doppler evidence of raise left atrial pressure. 2. Mild mitral and tricuspid regurgitation. 3. No significant pericardial effusion noted. Electronically signed by : Pete Ruiz, 08/13/2019 13:33:31
[2019-08-13 08:00] VITALS: BP 136/84; PULSE 130; RESP 24; TEMP 36.9; O2SAT 93
--- NOTE | 2019-08-13 08:00 | HMH.ACPN2 ---
Internal Medicine - PN: Subj *Date: 08/13/19 *Time: 08:00 Interval history: Overnight patient developed some tachycardia, in the low 100 range, but regular rhythm. Also complained of some urinary burning but has had no fevers. Continues to complain of abdominal pain that feels like a torch is in my lower belly. No vomiting, is attempting to eat breakfast fairly vigorously. Exam Vital signs and Labs for Last 24 Hours: Temp Pulse Resp BP Pulse Ox 98.9 F 122 H 24 160/90 H 93 L 08/13/19 03:43 08/13/19 06:42 08/13/19 03:43 08/13/19 03:43 08/13/19 06:42 Laboratory Results - last 24 hr 08/11/19 05:42: POC Glucose 214 H 08/11/19 15:39: POC Glucose 236 H 08/12/19 06:01: POC Glucose 138 H 08/12/19 11:00: POC Glucose 190 H 08/12/19 15:41: POC Glucose 148 H 08/12/19 19:43: POC Glucose 263 H 08/13/19 05:59: POC Glucose 161 H I & O for Last 24 hours: Intake & Output 08/10/19 08/11/19 08/12/19 08/13/19 11:59 11:59 11:59 11:59 Intake Total 2213 / 2213 3435 / 3435 4863 / 4863 3812 / 3812 Output Total 3875 / 3875 3575 / 3575 3675 / 3675 3390 / 3390 Balance -1662 / -1662 -140 / -140 1188 / 1188 422 / 422 Weight 263 lb 265 lb 8 oz 258 lb 264 lb Microbiology Reports for the Last 24 Hours: Microbiology 08/11/19 18:05 Thoracic Fluid Gram Stain - Final 08/11/19 18:05 Thoracic Fluid Body Fluid Culture - Preliminary NO GROWTH AFTER 24 HOURS Narrative: Patient is up on the side of the bed, alert. No jaundice, no scleral icterus. Thoracentesis Luca is bandaged appropriately. Lung air movement is improved in the left lower side, normal on the right. No evidence of tracheal displacement. Heart rate tachycardic but regular. No murmurs or gallops. Good distal pulses. Abdomen is soft, but tender in the left lower quadrant. No stigmata of liver disease. No periumbilical or flank bruising. F no peripheral edema, good distal perfusion. Assessment and Plan (1) Acute pancreatitis Current visit: Yes Status: Acute Category: Medical Code(s): K85.90 - Acute pancreatitis without necrosis or infection, unspecified (2) Sepsis Current visit: Yes Status: Acute Category: Medical Code(s): A41.9 - Sepsis, unspecified organism (3) Obesity (BMI 30.0-34.9) Current visit: Yes Status: Acute Category: Medical Code(s): E66.9 - Obesity, unspecified (4) Diabetes mellitus type 2, noninsulin dependent Current visit: Yes Status: Acute Category: Medical Code(s): E11.9 - Type 2 diabetes mellitus without complications (5) Hyperlipidemia Current visit: Yes Status: Acute Category: Medical Code(s): E78.5 - Hyperlipidemia, unspecified (6) Hypertension Current visit: Yes Status: Acute Category: Medical Code(s): I10 - Essential (primary) hypertension (7) Acute kidney injury superimposed on chronic kidney disease Current visit: Yes Status: Acute Category: Medical Code(s): N17.9 - Acute kidney failure, unspecified; N18.9 - Chronic kidney disease, unspecified (8) Left lower lobe pneumonia Current visit: Yes Status: Acute Category: Medical Code(s): J18.9 - Pneumonia, unspecified organism (9) Pleural effusion, left Current visit: Yes Status: Acute Category: Medical Code(s): J90 - Pleural effusion, not elsewhere classified - Assessment and plan all Dx Assessment and Plan for all problems:: Significant pancreatitis with multiple Yanely criteria positive, back off on diet today given his ongoing pain. Redo CT scan of abdomen to make sure there is no further inflammatory complications given his worsening pain. Check echocardiogram given tachycardia and make sure were not dealing with some type of cardiomyopathy or other dysfunction. Redo chest x-ray, check urinalysis and follow labs tomorrow.
[2019-08-13 09:07] LABS: Basophils # 0.1 K/mm3 (0-0.2); Basophils % 0.3 % (0.1-2.0); Eosinophils % 0.2 % (0.1-12.0); Hematocrit 37.8 % (42.0-52.0); Lymphocytes # 0.5 K/mm3 (0.7-4.5); Lymphocytes % 2.8 % (10-50); Mean Corpuscular HGB Conc 31.9 g/dL (31.8-35.4); Mean Corpuscular Hemoglobin 33.3 pg (27.0-31.2); Mean Corpuscular Volume 104.6 fl (80-94); Mean Platelet Volume 10.3 fl (7.4-10.4); Monocytes # 0.6 K/mm3 (0.1-1.0); Monocytes % 3.5 % (1.7-9.3); Neutrophils # 16.3 K/mm3 (1.8-7.8); Neutrophils % 93.2 % (37.0-80.0); Platelet Count 188 K/mm3 (142-424); Red Blood Count 3.61 M/mm3 (4.60-6.20); Red Cell Distribution Width 14.2 % (11.5-17.5); White Blood Count 17.5 K/mm3 (4.8-10.8)
[2019-08-13 09:11] LABS: MANUAL DIFFERENTIAL MANUAL DIFFERENTIAL (MANUAL DIFF)
[2019-08-13 09:21] LABS: Alanine Aminotransferase 26 U/L (12-78); Albumin Level 2.7 g/dl (3.5-5.0); Alkaline Phosphatase 85 U/L (38-126); Aspartate Amino Transferase 48 U/L (17-59); Bilirubin,Total 1.6 mg/dl (0.2-1.3); Blood Urea Nitrogen 20 mg/dl (9-20); Calcium 8.1 mg/dl (8.4-10.2); Carbon Dioxide 26 mmol/L (22.0-30.0); Chloride 95 mmol/L (98-107); Creatinine Clearance Estimated 130 mL/min (50-200); Estimated Glomerular Filt Rate 98 ml/min (>60); GFR (African American) 119 ML/MIN (>60); Globulin 2.7 g/dL (1.3-3.2); Glucose 195 mg/dl (74-100); Sodium 131 mmol/L (136-145); Total Protein,Serum 5.4 g/dl (6.3-8.2)
[2019-08-13 09:25] LABS: Albumin, Body Fluid 1.4 g/dL (Not Estab.); Glucose, Body Fluid 161 mg/dL (.); LD, Body Fluid 510 IU/L (.); Protein, Body Fluid 2.6 g/dL (.)
[2019-08-13 10:19] LABS: Microscopic, Urine URINE MICROSCOPIC (MICROSCOPIC)
[2019-08-13 10:22] LABS: Bilirubin,Urine Negative (Negative); Blood, Urine 1+ (Negative); Glucose,Urine (UA) 3+ (Negative); Ketones,Urine 2+ (Negative); Leukocyte Esterase,Urine Negative (Negative); Nitrate,Urine Negative (Negative); Protein,Urine TRACE (Negative)
[2019-08-13 10:28] LABS: Appearance,Urine Slightly Cloudy (Clear); Color,Urine Dark Yellow (Yellow)
[2019-08-13 10:38] LABS: Bacteria,Urine 2+ /lpf; Squamous Epithelial Cell,Urine Occasional #/hpf (0-5); Yeast,Urine 2+ /lpf
[2019-08-13 11:19] LABS: Anisocytosis 1+; Lymphocytes % 1 % (10-50); Macrocytosis 1+; Monocytes % 4 % (2-9); Neutrophils % 95 % (42-76); Total Cells Counted 100
[2019-08-13 11:20] LABS: Platelet Estimate Slight Increase
[2019-08-13 12:13] LABS: POC Glucose,Bedside 214 (70-110)
--- NOTE | 2019-08-13 12:32 | HMH.DCSUM ---
General - General Admission date:: 08/06/19 Discharge date: 08/13/19 HPI HPI: 64-year-old white male, with a history of diabetes, hypertension and hyperlipidemia who presented to the emergency department with a 2-day history of increasing left lower chest pain along with left upper abdominal pain. He reports some bloating sensations, and a gnawing/intractable pain that has worsened over the past 24 hours. In the emergency department work-up revealed clears chest CT scan, and abdominal CT that revealed evidence of inflammation of the tail of the pancreas without mass. Amylase and lipase were elevated, signs/symptoms of sepsis were noted and patient was admitted to hospital for IV fluids, pain control and antibiotics. Of note patient denies alcohol intake. Denies changes in stools, sonia colored stools, green stools or bloody stools. Patient reports that his physician that he sees for his diabetes recently started new medication and he thinks his new medications were diclofenac and Jardiance-patient notes that his A1c was 12% at his visit at his last appointment. Patient feels much better after pain medicine administered in the ER. Hospital Course Hospital Course: Patient was admitted, made n.p.o., placed on intravenous Zosyn because of Sirs criteria/sepsis. Fluids were started on arrival to floor. Patient initially improved over the next couple of days but even though white count improved, kidney injury labs improved, he continued to have some pain. He was found 3 days after admission to be developing pleural effusion. Surgery was consulted, tapped this 2 days ago, improved his breathing but continued have an oxygen requirement, unfortunately this morning he is feeling worse, repeat CT scan showed evidence of worsening/necrotic pancreatitis, and some reaccumulation of pleural fluid. Given significant Radford's criteria and worsening pancreatitis clinically and radiographically patient will be transferred to tertiary care center for GI consultation and ongoing support of what may turn into be deteriorating clinical condition. Objective Vital signs: Temp Pulse Resp BP Pulse Ox 98.4 F 130 H 24 136/84 93 L 08/13/19 08:00 08/13/19 08:00 08/13/19 08:00 08/13/19 08:00 08/13/19 08:00 Narrative: Patient is awake, comfortable, slightly tachycardic. No scleral icterus or jaundice. Abdomen tender in the left middle and lower quadrant. No rebound. No bruising. Lungs have diminished air movement in both bases. Rate tachycardic but regular. No edema or clubbing Results Labs on day of discharge: Labs from last 24 hours 08/13/19 08/13/19 08/13/19 12:06 10:10 08:55 WBC RBC Hgb Hct MCV MCH MCHC RDW Plt Count MPV Neut % (Auto) Lymph % (Auto) Webb % (Auto) Eos % (Auto) Baso % (Auto) Neut # (Auto) Lymph # (Auto) Webb # (Auto) Eos # (Auto) Baso # (Auto) Total Counted Neutrophils % (Manual) Lymphocytes % (Manual) Monocytes % (Manual) Platelet Estimate Anisocytosis Macrocytosis Sodium 131 L Potassium 4.0 Chloride 95 L Carbon Dioxide 26 Anion Gap 14.0 BUN 20 Creatinine 0.80 Estimated Creat Clear 130 Estimated GFR 98 Est GFR ( Amer) 119 Glucose 195 H POC Glucose 214 H Calcium 8.1 L Magnesium 2.0 Total Bilirubin 1.6 H AST 48 ALT 26 Alkaline Phosphatase 85 Total Protein 5.4 L Albumin 2.7 L Globulin 2.7 Albumin/Globulin Ratio 1.0 L Urine Color Dark yellow Urine Appearance Slightly cloudy Urine pH 6.0 Ur Specific [place] 1.010 Urine Protein Trace Urine Glucose (UA) 3+ Urine Ketones 2+ Urine Blood 1+ Urine Nitrate Negative Urine Bilirubin Negative Urine Urobilinogen 2.0 Ur Leukocyte Esterase Negative Urine RBC 5-10 Urine WBC 10-20 Ur Squamous Epith Cells Occasional Urine Bacteria
--- NOTE | 2019-08-13 14:09 | DIET.NUTRFU ---
Pt downgraded to clear liquid diet dt poor toleration advancement/continued abdominal symptoms. BG trending down, weight is stable.
== END 2019-08-13 14:40 | disposition short-term general hospital (02) | DRG 438 ==
LOC: ER 11:33 → 2ND 14:19
PROVIDERS: Internal Medicine Adolescent Medicine; Surgery; Admitting Provider Internal Medicine Adolescent Medicine; Emergency Provider Family Medicine; PCP Family Medicine; Visit Provider Internal Medicine Adolescent Medicine
DX: K85.30 Drug induced acute pancreatitis without necrosis or infection (principal); J18.9 Pneumonia, unspecified organism; A41.9 Sepsis, unspecified organism; N17.9 Acute kidney failure, unspecified; J90 Pleural effusion, not elsewhere classified; E86.0 Dehydration; E78.5 Hyperlipidemia, unspecified; I12.9 Hypertensive chronic kidney disease with stage 1 through stage 4 chronic kidney disease, or unspecified chronic kidney disease; N18.9 Chronic kidney disease, unspecified; T38.3X5A Adverse effect of insulin and oral hypoglycemic [antidiabetic] drugs, initial encounter
CPT/HCPCS: 32554; 36415; 71045; 71046; 71275; 74170; 74176; 76700; 80053; 80061; 81001; 82042; 82150; 82803; 82945; 82962; 83605; 83615; 83690; 83735; 84155; 84484; 85007; 85025; 85651; 86140; 87040; 87070; 87086; 87205; 87275; 87276; 87430; 89051; 93005; 93306; 94640; 94760; 94761; 96365; 96367; 96375; 97110; 97116; 97161; 97166; 97530; 97535; 99284; 99285; J2405; J2543; Q9967

== ENCOUNTER 2020-05-31 13:37 | Emergency (ER) | payer MEDICAID, SELFPAY ==
[2020-05-31] VITALS (32 sets, daily range): BP systolic 87–141; BP diastolic 47–80; PULSE 62–160; RESP 16–37; TEMP 36.6–38.8; O2SAT 88–97; BMI 23.1
--- NOTE | 2020-05-31 13:37 | HMH.EDGENADL ---
ED Disposition Condition on Discharge: Critical - Critical Care Critical Care Time: Yes Total Critical Care Time: 60 Vital system(s) involved:: Respiratory Failure, Shock (Septic) My critical care processes included: Assessment & monitoring of V/S, Initial and Re-exams, Data Review/Interpretation, Coordinating Care, Medication Orders and management, Documentation <JanetIsmael - Last Filed: 05/31/20 19:57> <Zak Mendiola - Last Filed: 06/01/20 02:53> Clinical Impression: Lactic acidosis, COVID-19, Infected pseudocyst of pancreas, Rapid atrial fibrillation Sepsis Qualifiers: Sepsis type: sepsis due to unspecified organism Sepsis acute organ dysfunction status: without acute organ dysfunction Qualified Code(s): A41.9 - Sepsis, unspecified organism DKA (diabetic ketoacidoses) Qualifiers: Diabetes mellitus type: other specified (including MELISSA) Diabetes mellitus complication detail: without coma Qualified Code(s): E13.10 - Other specified diabetes mellitus with ketoacidosis without coma Bilateral pneumonia Qualifiers: Pneumonia type: due to unspecified organism Lung location: lower lobe of lung Qualified Code(s): J18.9 - Pneumonia, unspecified organism Respiratory failure with hypoxia Qualifiers: Chronicity: acute Qualified Code(s): J96.01 - Acute respiratory failure with hypoxia Disposition: Xfer Short-Term Hosp Instructions: DI for Diarrhea and Traveler's Diarrhea -- Adult, DI for Diarrhea and Traveler's Diarrhea -- Child, DI for Nausea -- Adult, DI for Nausea -- Child Referrals: Dangelo Charles [Primary Care Provider] - Forms: Transfer Record - ED Attestation: On 05/31/20, the high probability of a clinically significant, sudden or life threatening deterioration of the following system(s) required my full and direct attention, intervention and personal management. The time I documented below is in addition to time spent performing reported procedures but includes the following listed in this critical care notation. Medical Decision Making - Faisal Inquiry Pt receiving controlled substance: No - Lab Data Result diagrams: 05/31/20 13:40 05/31/20 13:40 - Radiology Data #1 Image(s): Chest Image Reviewed: Yes I reviewed the patient's radiology image, Yes I discussed the image results w/the radiologist, Yes I have reviewed radiologist's interpretation - CT Data CT Scan: Abdomen, Pelvis, Chest Time Received: 16:[address] Reviewed: Yes: I discussed the CT results w/the radiologist, I have viewed the radiologist's interpretation - Physician Consults Physician Consulted: Jose Antonio Time: 16:23 Reason -: Surgical Eval/Care Comment/Response: Free air is confirmed on second CT reading by Ashu henderson, recommends transferring patient to . Feels he is too sick for community hospital surgical intervention. Additional Consult: Raciel Time: 17:25 Reason -: Admission, Pt condition Comment/Response: Request transfer to [facility]. Additional Consult: Dano - ER Time: 17:30 Reason -: Transfer to another facilty Comment/Response: [facility] is on diversion for everything except pediatrics and trauma. Unable to accept patient. - Reevaluation(s) Time: 18:07 - Tissue Perfus/Sepsis Re-Eval Sepsis Re-Evaluation Performed: Yes Date Performed: 05/31/20 Time Performed: 14:27 <Ismael Gonzales - Last Filed: 05/31/20 19:57> - Medical Records Medical records reviewed: Yes: I reviewed the patient's medical records. - Lab Data Lab results reviewed: Yes: I reviewed the patient's lab results. Result diagrams: 05/31/20 13:40 05/31/20 23:33 <Zak Mendiola - Last Filed: 06/01/20 02:53> Vital Signs: 05/31/20 13:40 05/31/20 13:41 05/31/20 14:00 Temperature 102 F H Temperature Source Rectal Pulse Rate [Radial] 103 H 95 H Respiratory Rate 32 H Blood Pressure [Right Radial Artery] 133/80 141/79 H Blood Pressure Mean [Right Radial Artery] 97 99 Blood Pressure Source [Right Ra
--- NOTE | 2020-05-31 13:39 | XR_ITS ---
PROCEDURE: XR CHEST PORTABLE CLINICAL HISTORY: fever, cough COMPARISON: CT CT ANGIO CHEST from 08/06/2019 CR XR CHEST 2V from 08/09/2019 CR XR CHEST PORTABLE from 08/11/2019 CR XR CHEST PORTABLE from 08/11/[address] ABDOMEN WO/W CON from 08/13/2019 FINDINGS: A prominent right cardiophrenic angle fat pad is noted on prior x-ray and CT studies. Slight irregularity of the right hemidiaphragm in this area greater than typical on prior studies is suspicious for infiltrate, aspiration, or localized atelectasis. Remaining portions of the lung murillo are clear. For there are no pleural effusions. Cardiac and mediastinal contours are within normal limits. Skeletal structures are unremarkable for patient age. A large calcification projects over the epigastric region which was previously better visualized on abdomen pelvis CT. IMPRESSION: For right costophrenic angle finding suspicious for infiltrate, aspiration, versus atelectasis superimposed on known right CP angle pericardial fat pad. Dictated by: Claudia Nickerson MD 05/31/2020 14:16 Claudia Nickerson MD in OV 05/31/2020 14:16
--- NOTE | 2020-05-31 13:42 | ECG_ITS ---
APPROVED REPORT Exam: Resting ECG HR:100 bpm ECG Measurements Heart Rate 100 AXES ID 162 P 50 QRSd 80 QRS 33 QT 342 T 54 QTc 441 Conclusion Normal sinus rhythm Normal ECG Electronically signed by : Steven Morales, 06/01/2020 17:27:51
--- NOTE | 2020-05-31 13:44 | PC.NURSE ---
Addendum entered by Sabi Franklin, EMT 05/31/20 13:48: 512 fsbs entered wrong reading. Original Note: 1323 fsbs 312
[2020-05-31 14:08] LABS: Microscopic,Cath URINE MICROSCOPIC (MICROSCOPIC)
[2020-05-31 14:08] LABS: Chloride 91 mmol/L (98-107); Sodium 133 mmol/L (136-145)
[2020-05-31 14:09] LABS: Acetone, Serum (Rapid) Small (None Detect); Potassium 4.9 mmoL/L (3.5-5.1)
[2020-05-31 14:11] LABS: Alanine Aminotransferase 46 U/L (12-78); Alkaline Phosphatase 143 U/L (38-126); Anion Gap 24.9 mEq/L (5-15); Aspartate Amino Transferase 51 U/L (17-59); Bilirubin,Total 1.8 mg/dl (0.2-1.3); Blood Urea Nitrogen 34 mg/dl (9-20); Carbon Dioxide 22 mmol/L (22.0-30.0); Creatine Kinase 47 U/L (55-170); Creatinine Clearance Estimated 82 mL/min (50-200); Estimated Glomerular Filt Rate 68 ml/min (>60); GFR (African American) 82 ML/MIN (>60)
[2020-05-31 14:12] LABS: Albumin Level 4.4 g/dl (3.5-5.0); Globulin 4.6 g/dL (1.3-3.2); Magnesium 2.4 mg/dl (1.6-2.3)
[2020-05-31 14:19] LABS: Lactic Acid 6.7 mmol/L (0.7-2.1)
[2020-05-31 14:20] LABS: Basophils % 0.2 % (0.1-2.0); Hemoglobin 16.8 g/dL (14.1-18.0); Lymphocytes # 0.4 K/mm3 (0.7-4.5); Lymphocytes % 3.9 % (10-50); Mean Corpuscular HGB Conc 31.6 g/dL (31.8-35.4); Mean Corpuscular Hemoglobin 32.7 pg (27.0-31.2); Mean Corpuscular Volume 103.5 fl (80-94); Mean Platelet Volume 9.6 fl (7.4-10.4); Monocytes # 0.4 K/mm3 (0.1-1.0); Monocytes % 3.7 % (1.7-9.3); Neutrophils # 8.9 K/mm3 (1.8-7.8); Neutrophils % 92.1 % (37.0-80.0); Platelet Count 165 K/mm3 (142-424); Red Blood Count 5.12 M/mm3 (4.60-6.20); Red Cell Distribution Width 14.2 % (11.5-17.5); White Blood Count 9.6 K/mm3 (4.8-10.8)
--- NOTE | 2020-05-31 14:22 | PC.NURSE ---
lab called to notify of lactic of 6.7 from lab
[2020-05-31 14:23] LABS: Appearance,Urine/Cath CLEAR (Clear); Bilirubin,Cath Negative (Negative); Blood, Urine/Cath 3+ (Negative); Color,Urine/Cath YELLOW (Yellow); Glucose,Urine/Cath (UA) 3+ (Negative); Ketones,Urine/Cath 1+ (Negative); Leukocyte Esterase,Cath Negative (Negative); Nitrate,Cath Negative (Negative); PH,Urine/Cath 5.5 (5.0-8.5); Protein,Urine/Cath 1+ (Negative); Specific Gravity, Urine/Cath 1.025 (1.005-1.030); Urobilinogen,Cath 0.2 EU/dl (0.2)
[2020-05-31 14:27] LABS: Troponin I < 0.01 ng/ml (0.00-0.034)
--- NOTE | 2020-05-31 14:27 | PC.NURSE ---
Notified pt met criteria for sepsis bolus, pt receiving one liter of fluids at this time, order entered and reminded MD to completed tissue reperfusion assessment. Notified Adelaida that pt would meet sepsis criteria
[2020-05-31 14:28] LABS: Glucose 576 mg/dl (74-100); MANUAL DIFFERENTIAL MANUAL DIFFERENTIAL (MANUAL DIFF)
--- NOTE | 2020-05-31 14:28 | PC.NURSE ---
lab notified that glucose is 756
--- NOTE | 2020-05-31 14:34 | CT_ITS ---
PROCEDURE: CT CHEST, ABDOMEN, AND PELVIS W CON CLINICAL INDICATION: abdominal pain COMPARISON: CT CT ANGIO CHEST from 08/06/[address] ABDOMEN WO/W CON from 08/13/[address] CHEST WO CON from 05/31/2020 CR XR CHEST PORTABLE from 05/31/2020 TECHNIQUE: IV Contrast: 75ML Isovue 370 Oral Contrast None Axial images obtained with sagittal and coronal reformats. All CT scans at the facility use one or more dose reduction, viz: automated exposure control, ma/kV adjustment per patient size (including targeted exams where dose is matched to indication, i.e. head), or iterative reconstruction technique. FINDINGS: CHEST: There is a large area of consolidation in the right base. Smaller areas of infiltrate with focal consolidation in the left lung base. There is a small left pleural effusion. Small area of ground-glass density at the base of the right upper lobe peripherally. Thyroid gland is small. There are multiple small nonenlarged mediastinal lymph nodes nonenlarged right greater number than typically seen. There is increased size of subcarinal adenopathy. There is scattered atherosclerotic calcifications in the coronary arteries. Images were acquired on during delayed post-contrast phase following acquisition of contrast-enhanced abdominal images. The vasculatures not adequately enhance for evaluation for pulmonary embolus or small abnormalities but to the degree is visualized the vasculature is otherwise unremarkable. There are scattered calcifications in the aortic valve. There is a small amount of pericardial fluid layering superiorly within normal limits. ABDOMEN & PELVIS: There is a large amount of bowel gas motion and/or respiratory motion which decreases image quality and diagnostic accuracy in some areas. There is left upper quadrant free fluid. There is a small collection of free intraperitoneal air associated. This extends from the gastric cardia to the splenic hilum in the pancreatic tail. There are numerous varices in the splenic hilum. There is indistinctness of the pancreatic parenchyma. Patient has history of pancreatitis. Differential considerations include developing infected pseudocyst, however perforated gastric ulcer could have the same appearance. A large calcified structure is redemonstrated anterior to greater curvature of the stomach. Adrenal glands are normal. Kidneys are normal. There is height no hydronephrosis, nephrolithiasis, ureteral or urinary bladder stone. Excretion of contrast by the kidneys was visualized on chest portion of this combined CT. Spleen remains normal limits of size. There is indistinctness diffusely of the pancreas. Gallbladder and liver are unremarkable. Branham catheter is in position in the urinary bladder. Prostate gland and seminal vesicles are unremarkable. There is a large amount of gas throughout the GI tract. There are multiple loops of borderline distended small bowel. The there is distension of the ascending colon. There is indistinctness of the gastric wall which could be due to the hyper peristalsis motion or could be indicated of of significant gastritis. There is no abdominal or pelvic adenopathy. There are numerous splenic varices in the splenic hilum and in the gastrocolic ligament and at least one add collateral vessel. There is asymmetric degenerative change of the sacroiliac joint with moderate change of the left sacroiliac joint and minimal degenerative change of the right sacroiliac joint. There are scattered degenerative changes throughout the remaining skeletal structures. Diffuse osteopenia suspected. Bone mineral density is suggested. IMPRESSION: 1. A intraperitoneal free air and free fluid differential considerati
[2020-05-31 14:38] LABS: Lipase 25 U/L (23-300)
[2020-05-31 14:39] LABS: Occult Blood,Stool Negative (Negative)
[2020-05-31 14:42] LABS: Thyroid Stimulating Hormone 1.83 uIU/mL (0.465-4.68)
[2020-05-31 14:51] LABS: VBG Base Excess -8.8 mmol/L (-2.4-2.3); VBG HCO3 18.7 mmol/L (23-30); VBG PH 7.24 mmol/L (7.31-7.41); VBG PO2 36.7 mmol/L (28-40); VBG Total CO2 20.1 mmol/L (23-27)
[2020-05-31 14:59] LABS: Bacteria,Urine/Cath TRACE /lpf; Hyaline Casts,Urine/Cath OCC #/lpf (0); Squamous Epithelial Ur./Cath Occasional #/hpf (0-5); WBC,Urine/Cath Occasional #/hpf (0-3)
--- NOTE | 2020-05-31 15:03 | PC.NURSE ---
Pt to rad.
[2020-05-31 15:25] LABS: Lymphocytes % 6 % (10-50); Monocytes % 7 % (2-9); Neutrophils % 85 % (42-76); Total Cells Counted 100
[2020-05-31 15:26] LABS: Platelet Estimate Normal; RBC Morphology Normal
--- NOTE | 2020-05-31 15:30 | PC.NURSE ---
return from ct
[2020-05-31 15:49] LABS: POC Glucose,Bedside 560 (70-110)
--- NOTE | 2020-05-31 15:59 | PC.NURSE ---
iv fluids infused
--- NOTE | 2020-05-31 16:25 | PC.NURSE ---
Dr Gonzales Spoke with Dr Brady.
--- NOTE | 2020-05-31 17:11 | PC.NURSE ---
service dr chen
--- NOTE | 2020-05-31 17:28 | PC.NURSE ---
Dr Gonzales speaking with Dr Matson at [facility]'s at this time.
--- NOTE | 2020-05-31 17:30 | PC.NURSE ---
is on divert, calling [facility] at this time.
[2020-05-31 17:41] LABS: POC Glucose,Bedside 378 (70-110)
--- NOTE | 2020-05-31 17:41 | PC.NURSE ---
Positive Covid results called to Mindy Snowden RN [facility] To return call.
--- NOTE | 2020-05-31 17:42 | PC.NURSE ---
[facility] returned call.
[2020-05-31 17:43] LABS: Reflex Lactic Add Lactic Reflex
--- NOTE | 2020-05-31 17:49 | PC.NURSE ---
Dr. Pendleton spoke with Dr. Gonzales and advised he would accept the patient and they would work getting us a bed.
--- NOTE | 2020-05-31 17:50 | PC.NURSE ---
pt's HR increased to 155
[2020-05-31 17:53] LABS: Lactic Acid Follow Up (RFLX 1) 3.1 mmol/L (0.7-2.1)
--- NOTE | 2020-05-31 17:54 | ECG_ITS ---
APPROVED REPORT Exam: Resting ECG HR:153 bpm ECG Measurements Heart Rate 153 AXES QRSd 82 QRS 22 QT 290 T 27 QTc 463 Conclusion Supraventricular tachycardia Otherwise normal ECG Electronically signed by : Steven Morales, 06/02/2020 14:59:24
--- NOTE | 2020-05-31 18:23 | PC.NURSE ---
cardizem drip increased to 10mg/hr
--- NOTE | 2020-05-31 18:29 | PC.NURSE ---
pt with 1300cc urine output
--- NOTE | 2020-05-31 18:34 | PC.NURSE ---
accucheck 343
--- NOTE | 2020-05-31 18:36 | PC.NURSE ---
HR 155, cardizem drip increased to 15mg/hr
[2020-05-31 18:40] LABS: POC Glucose,Bedside 343 (70-110)
--- NOTE | 2020-05-31 18:46 | PC.NURSE ---
cardizem drip decreased to 10mg/hr due to b/p of 90/58
--- NOTE | 2020-05-31 18:51 | PC.NURSE ---
ns rate 150cc/hr
--- NOTE | 2020-05-31 18:53 | PC.NURSE ---
dr bailon paged and returned call
--- NOTE | 2020-05-31 19:19 | PC.NURSE ---
spoke with [facility] start [facility]p at 60mcg/min
--- NOTE | 2020-05-31 19:20 | PC.NURSE ---
[facility]
[2020-05-31 19:44] LABS: Reflex Lactic (2 hrs) Add Lactic Reflex
--- NOTE | 2020-05-31 19:49 | PC.NURSE ---
calling [facility] for status on bed placement
--- NOTE | 2020-05-31 19:50 | PC.NURSE ---
[facility] is unsure of when they will have a bed
[2020-05-31 19:55] LABS: Lactic Acid Follow up (RFLX 2) 3.8 mmol/L (0.7-2.1)
[2020-05-31 20:02] LABS: Anion Gap 14.9 mEq/L (5-15); Blood Urea Nitrogen 34 mg/dl (9-20); Carbon Dioxide 24 mmol/L (22.0-30.0); Chloride 102 mmol/L (98-107); Creatinine Clearance Estimated 90 mL/min (50-200); Estimated Glomerular Filt Rate 98 ml/min (>60); GFR (African American) 118 ML/MIN (>60); Glucose 359 mg/dl (74-100); Potassium 3.9 mmoL/L (3.5-5.1); Sodium 137 mmol/L (136-145)
[2020-05-31 20:24] LABS: Calcium 8.9 mg/dl (8.4-10.2)
[2020-05-31 20:44] LABS: POC Glucose,Bedside 295 (70-110)
--- NOTE | 2020-05-31 21:35 | PC.NURSE ---
insulin drip decreased to 4.2ml/hr
[2020-05-31 21:53] LABS: POC Glucose,Bedside 189 (70-110)
[2020-05-31 21:53] LABS: POC Glucose,Bedside 279 (70-110)
--- NOTE | 2020-05-31 23:48 | PC.NURSE ---
Addendum entered by Tiffany Taylor RN 05/31/20 23:49: phenylephrine increased to 70 Original Note: cardizem drip increased to 15 phenylephrine increased to 60
[2020-06-01] VITALS (8 sets, daily range): BP systolic 104–135; BP diastolic 65–77; PULSE 130–151; RESP 34–37; TEMP 36.7; O2SAT 88–91
[2020-06-01 00:04] LABS: POC Glucose,Bedside 139 (70-110)
[2020-06-01 00:19] LABS: POC Glucose,Bedside 162 (70-110)
--- NOTE | 2020-06-01 00:57 | PC.NURSE ---
insulin drip decreased to 2.1ml/hr
[2020-06-01 00:58] LABS: Anion Gap 12.4 mEq/L (5-15); Blood Urea Nitrogen 32 mg/dl (9-20); Calcium 8.5 mg/dl (8.4-10.2); Carbon Dioxide 25 mmol/L (22.0-30.0); Chloride 106 mmol/L (98-107); Creatinine Clearance Estimated 90 mL/min (50-200); Estimated Glomerular Filt Rate 136 ml/min (>60); GFR (African American) 165 ML/MIN (>60); Glucose 160 mg/dl (74-100); Potassium 5.4 mmoL/L (3.5-5.1); Sodium 138 mmol/L (136-145)
[2020-06-01 01:03] LABS: POC Glucose,Bedside 94 (70-110)
--- NOTE | 2020-06-01 01:43 | PC.NURSE ---
insulin drip decreased to 1.0 ml/hr
[2020-06-01 01:46] LABS: POC Glucose,Bedside 98 (70-110)
[2020-06-01 02:42] LABS: POC Glucose,Bedside 145 (70-110)
--- NOTE | 2020-06-01 02:42 | PC.NURSE ---
D5 decreased to 75 ml/ hr
--- NOTE | 2020-06-01 03:08 | PC.NURSE ---
gave report to Elda @ [facility]
[2020-06-01 03:24] LABS: Anion Gap 9.7 mEq/L (5-15); Blood Urea Nitrogen 28 mg/dl (9-20); Calcium 8.8 mg/dl (8.4-10.2); Carbon Dioxide 26 mmol/L (22.0-30.0); Chloride 107 mmol/L (98-107); Creatinine Clearance Estimated 90 mL/min (50-200); Estimated Glomerular Filt Rate 98 ml/min (>60); GFR (African American) 118 ML/MIN (>60); Glucose 140 mg/dl (74-100); Potassium 3.7 mmoL/L (3.5-5.1); Sodium 139 mmol/L (136-145)
--- NOTE | 2020-06-01 03:39 | PC.NURSE ---
insulin drip stopped @ this time
--- NOTE | 2020-06-01 04:31 | PC.NURSE ---
800ml of urine drained from covarrubias
[2020-06-22 08:50] LABS: POC Glucose,Bedside 512 (70-110)
== END 2020-06-01 04:50 | disposition short-term general hospital (02) ==
PROVIDERS: Emergency Medicine; Emergency Provider Emergency Medicine; PCP Family Medicine
DX: U07.1 COVID-19 (principal); J12.82 Pneumonia due to coronavirus disease 2019; J96.01 Acute respiratory failure with hypoxia; E13.10 Other specified diabetes mellitus with ketoacidosis without coma; A41.9 Sepsis, unspecified organism; I48.0 Paroxysmal atrial fibrillation; Z79.4 Long term (current) use of insulin; I10 Essential (primary) hypertension; E78.5 Hyperlipidemia, unspecified; K86.3 Pseudocyst of pancreas; Z79.899 Other long term (current) drug therapy
CPT/HCPCS: 36415; 71045; 71250; 74177; 80048; 80053; 81001; 82009; 82272; 82550; 82803; 82962; 83605; 83690; 83735; 84443; 84484; 85007; 85025; 87040; 87077; 87186; 93005; 96365; 96366; 96367; 96375; 96376; 99285; G0328; J0456; J1335; J2405; Q9967; U0003

== ENCOUNTER 2021-09-21 08:49 | Emergency (ER) | payer MEDICAID, SELFPAY ==
[2021-09-21] VITALS (19 sets, daily range): BP systolic 118–168; BP diastolic 59–103; PULSE 50–93; RESP 16–20; TEMP 34.4–36.6; O2SAT 92–99; BMI 29.0
--- NOTE | 2021-09-21 08:51 | PC.NURSE ---
FARHAD WELLER at
--- NOTE | 2021-09-21 08:57 | ECG_ITS ---
APPROVED REPORT Exam: Resting ECG HR:54 bpm ECG Measurements Heart Rate 54 AXES IA 211 P 67 QRSd 106 QRS 61 QT 436 T 60 QTc 421 Conclusion SINUS BRADYCARDIA WITH FIRST DEGREE AV BLOCK ABNORMAL ECG UNCONFIRMED REPORT Electronically signed by : Steven Morales MD 09/22/2021 20:20:03
--- NOTE | 2021-09-21 08:57 | XR_ITS ---
FINAL REPORT CLINICAL HISTORY: soa, blood sugar dropped COMPARISON: May 31, 2020 FINDINGS: The heart is enlarged. The mediastinum is normal. There is no focal infiltrate or edema. There is a small right pleural effusion, worse. There is no pneumothorax. There is no osseous abnormality. IMPRESSION: Small right pleural effusion, worse. Reviewed, Interpreted and Dictated by Andrey Vivar III, MD Transcribed by Volodymyr Lester Authenticated and [facility]
[2021-09-21 09:23] LABS: Basophils # 0.2 K/mm3 (0-0.2); Eosinophils # 0.1 K/mm3 (0.0-0.4); Hemoglobin 16.3 g/dL (14.1-18.0); Lymphocytes # 0.5 K/mm3 (0.7-4.5); Lymphocytes % 6.4 % (10-50); Mean Corpuscular HGB Conc 32.6 g/dL (31.8-35.4); Mean Corpuscular Volume 104.4 fl (80-94); Mean Platelet Volume 9.2 fl (7.4-10.4); Monocytes # 0.5 K/mm3 (0.1-1.0); Monocytes % 6.6 % (1.7-9.3); Neutrophils # 6.1 K/mm3 (1.8-7.8); Neutrophils % 84.1 % (37.0-80.0); Platelet Count 109 K/mm3 (142-424); Red Blood Count 4.79 M/mm3 (4.60-6.20); Red Cell Distribution Width 14.2 % (11.5-17.5); White Blood Count 7.2 K/mm3 (4.8-10.8)
[2021-09-21 09:25] LABS: Chloride 102 mmol/L (98-107); Sodium 139 mmol/L (136-145)
[2021-09-21 09:26] LABS: Potassium 4.5 mmoL/L (3.5-5.1)
--- NOTE | 2021-09-21 09:26 | HMH.EDGENADL ---
ED Disposition Clinical Impression: Hypoglycemia Disposition: Still a Patient Condition on Discharge: Good Referrals: Dangelo Charles [Primary Care Provider] - - Critical Care Critical Care Time: No Attestation: On 09/21/21, the high probability of a clinically significant, sudden or life threatening deterioration of the following system(s) required my full and direct attention, intervention and personal management. The time I documented below is in addition to time spent performing reported procedures but includes the following listed in this critical care notation. Medical Decision Making - Faisal Inquiry Pt receiving controlled substance: No Vital Signs: 09/21/21 08:50 09/21/21 09:31 09/21/21 10:01 Temperature 94.6 F L Temperature Source Oral Pulse Rate 50 L 50 L Pulse Rate [Radial] 52 L Respiratory Rate 16 20 20 Blood Pressure 143/75 H 128/61 Blood Pressure [Right Arm] 142/103 H Blood Pressure Mean 97 83 Blood Pressure Mean [Right Arm] 116 Blood Pressure Position [Right Arm] Sitting 02 Sat by Pulse Oximetry 99 97 97 Oxygen Delivery Method Room Air 09/21/21 10:31 09/21/21 11:05 09/21/21 11:50 Temperature 94 F L 97.5 F L Temperature Source Oral Oral Pulse Rate 53 L Pulse Rate [Radial] Respiratory Rate 16 Blood Pressure 141/77 H Blood Pressure [Right Arm] Blood Pressure Mean 86 Blood Pressure Mean [Right Arm] Blood Pressure Position [Right Arm] 02 Sat by Pulse Oximetry 98 Oxygen Delivery Method - Lab Data Lab Results 09/21/21 08:57: VBG pH 7.26 L, VBG pCO2 66.4 H, VBG pO2 32.4, VBG HCO3 29.3, VBG Total CO2 31.3 H, VBG O2 Saturation 55.5, VBG Base Excess 2.2 09/21/21 09:08: WBC 7.2, RBC 4.79, Hgb 16.3, Hct 50.0, MCV 104.4 H, MCH 34.0 H, MCHC 32.6, RDW 14.2, Plt Count 109 L, MPV 9.2, Neut % (Auto) 84.1 H, Lymph % (Auto) 6.4 L, [place] % (Auto) 6.6, Eos % (Auto) 1.0, Baso % (Auto) 2.0, Neut # (Auto) 6.1, Lymph # (Auto) 0.5 L, [place] # (Auto) 0.5, Eos # (Auto) 0.1, Baso # (Auto) 0.2 09/21/21 09:08: Sodium 139, Potassium 4.5, Chloride 102, Carbon Dioxide 33 H, Anion Gap 8.5, BUN 17, Creatinine 1.10, Estimated Creat Clear 96, Estimated GFR 67, Est GFR ( Amer) 82, Glucose 128 H, Calcium 9.9, Total Bilirubin 1.0, AST 49, ALT 35, Alkaline Phosphatase 91, Troponin I < 0.01, Total Protein 7.6, Albumin 4.4, Globulin 3.2, Albumin/Globulin Ratio 1.4 09/21/21 09:40: POC Glucose 72 09/21/21 10:23: POC Glucose 84 09/21/21 11:52: POC Glucose 75 09/21/21 12:08: POC Glucose 72 Result diagrams: 09/21/21 09:08 09/21/21 09:08 Orders (Tests/Meds): ED MEDICATIONS Discontinued Medications Generic Name Dose Route Start Last Admin Trade Name Freq PRN Reason Stop Dose Admin Dextrose 50 ml 09/21/21 09:38 09/21/21 09:00 Dextrose 50% 50ml Syringe (Crash Cart) IVP 09/21/21 09:39 50 ml ONCE ONE Administration Dextrose 50 ml 09/21/21 12:13 09/21/21 12:18 Dextrose 50% 50ml Syringe (Crash Cart) IVP 09/21/21 12:14 50 ml ONCE ONE Administration Lactated Ringer's 1,000 mls @ 999 mls/hr 09/21/21 09:15 09/21/21 09:38 Lactated Ringer's 1000 Ml Bag IV 09/21/21 10:15 999 mls/hr .Q1H1M RICKY Administration Lactated Ringer's 1,000 mls @ 999 mls/hr 09/21/21 12:15 09/21/21 12:19 Lactated Ringer's 1000 Ml Bag IV 09/21/21 13:15 999 mls/hr .Q1H1M RICKY Administration ORDERS Category Date Time Status Rapid PCR Covid and Flu A/B Stat Lab 09/21/21 13:54 Received Urinalysis and Microscopic Stat Lab 09/21/21 08:57 Ordered Medical Decision Narrative: The patient is a 66 year old male who presents with hypoyglycemia and syncope. patient is awake and alert on arrival. bg 72. Given 1 amp dextrose with improvement. Labs obtained including cbc, cmp, vbg unremarkable. given 1L IVF. On reassessment patients glucose back down to 70s - symptomatic - given another amp of glucose and IVF. Due to persistent dizziness on standing CT of the head was
--- NOTE | 2021-09-21 09:26 | PC.NURSE ---
Ordered Breakfast tray
[2021-09-21 09:28] LABS: Alanine Aminotransferase 35 U/L (12-78); Albumin Level 4.4 g/dl (3.5-5.0); Albumin/Globulin Ratio 1.4 (1.1-1.8); Alkaline Phosphatase 91 U/L (38-126); Anion Gap 8.5 mEq/L (5-15); Aspartate Amino Transferase 49 U/L (17-59); Blood Urea Nitrogen 17 mg/dl (9-20); Carbon Dioxide 33 mmol/L (22.0-30.0); Creatinine Clearance Estimated 96 mL/min (50-200); Estimated Glomerular Filt Rate 67 ml/min (>60); GFR (African American) 82 ML/MIN (>60); Globulin 3.2 g/dL (1.3-3.2); Total Protein,Serum 7.6 g/dl (6.3-8.2)
[2021-09-21 09:29] LABS: Calcium 9.9 mg/dl (8.4-10.2); Glucose 128 mg/dl (74-100)
[2021-09-21 09:35] LABS: VBG Base Excess 2.2 mmol/L (-2.4-2.3); VBG HCO3 29.3 mmol/L (23-30); VBG Oxygen Saturation 55.5 % (50-70); VBG PCO2 66.4 mmol/L (35-51); VBG PH 7.26 mmol/L (7.31-7.41); VBG PO2 32.4 mmol/L (28-40); VBG Total CO2 31.3 mmol/L (23-27)
[2021-09-21 09:42] LABS: Troponin I < 0.01 ng/ml (0.00-0.034)
[2021-09-21 09:48] LABS: POC Glucose,Bedside 72 (70-110)
--- NOTE | 2021-09-21 09:52 | PC.NURSE ---
PT GIVEN DIET TRAY
--- NOTE | 2021-09-21 10:10 | PC.NURSE ---
FARHAD WELLER at
--- NOTE | 2021-09-21 10:28 | PC.NURSE ---
checked on pt at this time, pt finished eating breakfast tray, reports no needs at this time. Will continue to monitor
[2021-09-21 10:29] LABS: POC Glucose,Bedside 84 (70-110)
--- NOTE | 2021-09-21 11:07 | PC.NURSE ---
PT PLACED ON NICKO HUGGER
[2021-09-21 11:59] LABS: POC Glucose,Bedside 75 (70-110)
[2021-09-21 12:14] LABS: POC Glucose,Bedside 72 (70-110)
--- NOTE | 2021-09-21 12:47 | CT_ITS ---
FINAL REPORT CLINICAL HISTORY: fall FINDINGS: Axial images of the head were obtained without contrast. Coronal reformatted images were also obtained. This study was performed with techniques to keep radiation doses as low as reasonably achievable (ALARA). Individualized dose reduction techniques using automated exposure control or adjustment of mA and/or kV according to the patient's size were employed. There is generalized age-appropriate atrophy. Periventricular low-attenuation areas are seen consistent with mild chronic ischemic changes. There is a small focus of increased attenuation in the medial left yris measuring 4 mm. It is uncertain if this represents calcification or hemorrhage. There is no evidence of acute infarct. There is no evidence of shift of the midline structures. No skull abnormality is seen on the bone window images. IMPRESSION: Atrophy and mild periventricular chronic ischemic changes. 4 mm focus of increased attenuation in the medial left yris may represent calcifications or hemorrhage. This could be further evaluated with follow-up CT or MRI. Reviewed, Interpreted and Dictated by Andrey Vivar III, MD Transcribed by Lulu Ward Authenticated and [facility]
--- NOTE | 2021-09-21 13:30 | PC.NURSE ---
PT UP AMBULATING WITH ASSIST OF ONE. PT C/O LIGHTHEADED DIZZINESS, DIAPHORESIS. PT STATES HE FEELS UNSTEADY WITH AMBULATION. PT RETURNED TO BED. DIET TRAY GIVEN
--- NOTE | 2021-09-21 13:44 | PC.NURSE ---
pt sitting up in bed eating lunch tray
[2021-09-21 13:56] LABS: Coronavirus 19, PCR Not Detected (NotDetected); Influenza A, PCR Not Detected (NotDetected); Influenza B, PCR Not Detected (NotDetected)
--- NOTE | 2021-09-21 13:59 | PC.NURSE ---
[facility] ordering MRI for pt, shazia olson has spoken with MRI staff and pauline in care management for MRI. Waiting on MRI to tell us when they can work pt into schedule, states possibly approx 25-30 minutes
--- NOTE | 2021-09-21 14:10 | PC.NURSE ---
checked on pt at this time. pt requesting we contact his sister in law, number in the system is not a working number. Pt aware.
--- NOTE | 2021-09-21 14:17 | MR_ITS ---
FINAL REPORT CLINICAL HISTORY: ABNORMAL CT. HISTORY STROKE. PATIENT STATES BLACKED OUT AND HIT HEAD. UNSTABLE ON FEET. COMPARISON: CT from the same day FINDINGS: Multiplanar MR imaging of the brain was performed without contrast. There is age-appropriate atrophy. There is no intracerebral hemorrhage, specifically there is decreased signal in the left yris on gradient echo imaging favored to represent an area of calcification. No abnormal ventricular dilatation is identified. No abnormal extra-axial fluid collection is seen. No abnormality is seen on the diffusion weighted images. Normal major vessel vascular flow voids are seen. There is opacification of multiple bilateral mastoid air cells. There is a retention cyst or polyp in the right sphenoid sinus. IMPRESSION: Age-appropriate atrophy. No acute intracranial abnormality. Reviewed, Interpreted and Dictated by Andrey Vivar III, MD Transcribed by Volodymyr Lester Authenticated and [facility]
--- NOTE | 2021-09-21 14:27 | PC.NURSE ---
TO MRI PER WHEELCHAIR
--- NOTE | 2021-09-21 15:18 | PC.NURSE ---
PT RETURN FROM MRI
[2021-09-21 15:56] LABS: POC Glucose,Bedside 92 (70-110)
--- NOTE | 2021-09-21 16:58 | PC.NURSE ---
PTs PORFIRIO called to check on pt
--- NOTE | 2021-09-21 17:15 | PC.NURSE ---
called pt's sister in law who states she will be to get patient.
== END 2021-09-21 18:05 | disposition home or self-care (01) ==
PROVIDERS: Emergency Medicine; Emergency Provider Student in an Organized Health Care Education/Training Program; PCP Family Medicine
DX: E11.649 Type 2 diabetes mellitus with hypoglycemia without coma (principal); R55 Syncope and collapse; R06.89 Other abnormalities of breathing; Z79.84 Long term (current) use of oral hypoglycemic drugs; Z79.4 Long term (current) use of insulin; Z79.899 Other long term (current) drug therapy; I48.91 Unspecified atrial fibrillation
CPT/HCPCS: 70450; 70551; 71045; 80053; 82803; 82962; 84484; 85025; 93005; 96365; 96366; 96375; 96376; 99284; C9803; U0003; U0005